=== PATIENT | male | born 1965 | race Caucasian/White ===

== ENCOUNTER 2023-05-20 12:00 | Inpatient (IN) | payer MEDICAID ==
[~2023-05-20] VITALS: Ht 170.2 cm; Wt 53.7 kg
[2023-05-20] VITALS (20 sets, daily range): BP systolic 91–126; BP diastolic 42–74; PULSE 110–137; RESP 12–24; O2SAT 92–99
[2023-05-20] MEDS ORDERED: normal saline 1000ml 1,000 ML IV ONE (12:10)
[2023-05-20] MEDS ORDERED: ondansetron/PF 4mg/2ml inj IV ONE (12:10)
[2023-05-20] MEDS ORDERED: HYDROmorphone 1 mg/ml syringe IV ONE ×2 (12:10→13:00)
[2023-05-20 12:30] LABS: BASOPHILS % (AUTO) 0.3 % (0-1); EOSINOPHILS # (AUTO) 0.1 X10'3 (0-0.9); HEMATOCRIT 45.7 % (42.0-52.0); HEMOGLOBIN 15.2 g/dl (14.0-17.9); LYMPHOCYTES % (AUTO) 37.7 % (21-51); MEAN CORPUSCULAR HEMOGLOBIN 33.3 PG (27.0-31.0); MEAN CORPUSCULAR HGB CONC 33.3 g/dL (33.0-36.5); MEAN CORPUSCULAR VOLUME 99.9 FL (78-98); MEAN PLATELET VOLUME 6.6 FL (7.4-10.4); MONOCYTES % (AUTO) 1.7 % (2-12); NEUTROPHILS # (AUTO) 1.5 X10'3 (1.8-7.7); NEUTROPHILS % (AUTO) 58.3 % (42-75); PLATELET COUNT 435 X10'3 (140-440); RED BLOOD COUNT 4.57 X10'6 (4.70-6.10); WHITE BLOOD COUNT 2.6 X10'3 (4.5-11.0)
[2023-05-20 12:56] LABS: ALANINE AMINOTRANSFERASE 7 U/L (12-78); ALBUMIN 3.1 G/DL (3.4-5.0); ALBUMIN/GLOBULIN RATIO 1.1 (1.1-1.5); ALKALINE PHOSPHATASE 70 IU/L (46-116); ANION GAP 19 (8-16); ASPARTATE AMINO TRANSFERASE 18 U/L (10-37); BILIRUBIN,TOTAL 2.5 MG/DL (0.1-1.0); BLOOD UREA NITROGEN 18 MG/DL (7-18); BUN/CREATININE RATIO 17.1 (10.0-20.0); CALCIUM 7.1 MG/DL (8.5-10.1); CHLORIDE 98 MMOL/L (99-107); CREATININE 1.05 MG/DL (0.60-1.10); GLUCOSE 167 MG/DL (70-104); LIPASE 14 U/L (16-77); POTASSIUM 3.2 MMOL/L (3.5-5.1); SODIUM 133 MMOL/L (135-145); TOTAL CARBON DIOXIDE 16.5 MMOL/L (24-32); TOTAL PROTEIN 5.9 G/DL (6.4-8.2); eCRCL 51 ML/MIN; eGFR 73 ML/MIN
[2023-05-20] MEDS ORDERED: piperacillin/tazo 4.5gm/100ml 100 ML IV STA (12:56)
[2023-05-20 12:59] LABS: TOTAL CELLS COUNTED 100
[2023-05-20 13:00] LABS: BURR CELLS FEW; PLATELET ESTIMATE NORMAL; TOXIC GRANULATION 1+; TOXIC VACUOLATION FEW
[2023-05-20] MEDS ORDERED: ringers solution, lacted 1,000 ML IV ONE ×4 (13:00→17:50)
[2023-05-20] MEDS ORDERED: vancomycin/NS 1 GM ADD-VANTAGE 250 ML X 1 DOSE IV ONE (13:10)
[2023-05-20] MEDS ORDERED: meperidine/PF 25mg/ml syringe IV PRN ×3 (13:45)
[2023-05-20] MEDS ORDERED: ringers solution, lacted 1,000 ML IV SCH (13:45)
[2023-05-20] MEDS ORDERED: morphine 2 MG/ML inj. syringe IV PRN (13:45)
[2023-05-20] MEDS ORDERED: morphine 4 MG/ML inj SYRINge IV PRN (13:45)
[2023-05-20] MEDS ORDERED: proCHLORperazine 10 MG/2 ml inj IV PRN (13:45)
[2023-05-20] MEDS ORDERED: ondansetron/PF 4mg/2ml inj IV PRN ×2 (13:45→16:40)
[2023-05-20] MEDS ORDERED: TOBRAMYCIN IV STA ×3 (14:14→14:33)
[2023-05-20] MEDS ORDERED: NORMAL SALINE IV STA ×3 (14:14→14:33)
[2023-05-20] MEDS ORDERED: LIDOcaine 1% (10mg/ml)w/preservative inj. 20ml MDV ONE (14:28)
[2023-05-20] MEDS ORDERED: midazolam 1 mg/ML 2ml injection ONE (14:31)
[2023-05-20] MEDS ORDERED: fentaNYL /PF 50mcg/ml 5ml ampule ONE (14:31)
[2023-05-20] MEDS ORDERED: etomidate 2mg/ml inj. ONE (14:32)
[2023-05-20] MEDS ORDERED: rocuronium 10mg/ml inj IV ONE ×2 (14:33→14:35)
[2023-05-20] MEDS ORDERED: desflurane 240ml liquid inh. IH ONE (14:35)
[2023-05-20] MEDS ORDERED: neostigmine methylsulfate 1 MG/ML 10ml vial ONE (14:35)
[2023-05-20] MEDS ORDERED: BUPIVAcaine 2.5mg/ml inj 50ml vial (contains preservative) ONE (14:54)
[2023-05-20 15:34] LABS: ABG BASE EXCESS -9.7 mmol/L (-2.0-2.0); ABG HCO3 17.9 mmol/L (22.0-26.0); ABG PCO2 (T) 43.5 mmHg (35.0-48.0); ABG PH (T) 7.227 (7.340-7.440); ABG PO2 (T) 115.5 mmHg (75.0-100.0); FCOHb 2.1 % (0.0-3.9); FHHb 2.9 % (0.0-5.0); FMetHb 0.3 % (0.0-1.5); FO2Hb 94.7 % (94-97); TOTAL HEMOGLOBIN 14.6 G/dl (14.0-17.9)
[2023-05-20] MEDS ORDERED: albumin (Human) 5% 250ml 750 ML IV ONE (16:14)
[2023-05-20] MEDS ORDERED: albuterol 2.5 MG/3 ML nebule NEB PRN (16:40)
--- NOTE | 2023-05-20 16:58 | NUR ---
Received from OR via HOSPITAL BED, accompanied by Anesthesiologist and report given by KAE Anesthesiologist. PATIENT SEDATED AND INTUBATED, NO S/S OF PAIN, V/S WNL, 20G TO RIGHT AND LEFT FOREARM, ART LINE LUE, CENTRAL LINE RIGHT IJ. RIGHT NARES NG TUBE CONNECTED TO LOWER INTERMITTENT WALL SUCTION. ZHANG CATH DRAINING CLEAR DARK YELLOW URINE. ABDOMEN DRESSING C/D/I WITH SEROSANGUINEOUS FLUID DRESSING. Addendum: 05/20/23 at 1821 by Ervin Rendon RN Amended: Links added.
[2023-05-20] MEDS ORDERED: fentaNYL/PF 50MCG/1 ML 2ML syringe IV PRN (17:05)
[2023-05-20] MEDS ORDERED: FENTANYL-0.9 % NACL/PF 100 ML IV PRN (17:05)
[2023-05-20] MEDS ORDERED: midazolam 1 mg/ML 2ml injection IV ONE (17:05)
[2023-05-20 17:28] LABS: ABG BASE EXCESS -11.3 mmol/L (-2.0-2.0); ABG HCO3 15.7 mmol/L (22.0-26.0); ABG OXYGEN SATURATION 97.2 % (94-97); ABG PCO2 (T) 35.4 mmHg (35.0-48.0); ABG PH (T) 7.252 (7.340-7.440); ABG PO2 (T) 109.1 mmHg (75.0-100.0); FCOHb 1.4 % (0.0-3.9); FHHb 2.8 % (0.0-5.0); FMetHb 0.3 % (0.0-1.5); FO2Hb 95.5 % (94-97); MODE VENT - SIMV; PATIENT TEMPERATURE 34.5; PEEP 5 cm H2O; RESPIRATORY RATE 12 b/min; TIDAL VOLUME 500 mL; TOTAL HEMOGLOBIN 12.1 G/dl (14.0-17.9)
[2023-05-20] MEDS ORDERED: NORepinephrine 8mg/ 250ml NS 250 ML IV PRN (17:30)
[2023-05-20] MEDS: NORepinephrine 8mg/ 250ml NS 250 ML IV PRN (17:39)
[2023-05-20] MEDS: FENTANYL-0.9 % NACL/PF 100 ML IV PRN (17:40)
[2023-05-20] MEDS ORDERED: vasopressin inj. 40 UNIT in dextrose 5%-water 50ml 38 ML IV SCH (17:40)
[2023-05-20] MEDS ORDERED: vasopressin inj. 40 UNIT in normal saline 50ml IV soln 38 ML IV SCH (17:44)
[2023-05-20 17:48] LABS: LYMPHOCYTES # (AUTO) 0.2 X10'3 (1.1-4.8); MONOCYTES # (AUTO) 0.1 X10'3 (0-0.9)
[2023-05-20] MEDS: midazolam 100mg in NS 100ml 100 ML IV PRN (17:49)
[2023-05-20 17:50] LABS: BASOPHILS % (AUTO) 0.6 % (0-1); EOSINOPHILS % (AUTO) 0.8 % (0-6); HEMATOCRIT 34.6 % (42.0-52.0); HEMOGLOBIN 11.7 g/dl (14.0-17.9); LYMPHOCYTES % (AUTO) 33.6 % (21-51); MEAN CORPUSCULAR VOLUME 100.1 FL (78-98); MEAN PLATELET VOLUME 6.2 FL (7.4-10.4); MONOCYTES % (AUTO) 11.3 % (2-12); NEUTROPHILS # (AUTO) 0.3 X10'3 (1.8-7.7); NEUTROPHILS % (AUTO) 53.7 % (42-75); PLATELET COUNT 271 X10'3 (140-440); RED BLOOD COUNT 3.45 X10'6 (4.70-6.10)
[2023-05-20 18:04] LABS: CLARITY,URINE CLOUDY (Clear); COLOR,URINE BROWN (Yellow)
[2023-05-20 18:07] LABS: ALBUMIN 2.2 G/DL (3.4-5.0); ANION GAP 11 (8-16); BLOOD UREA NITROGEN 18 MG/DL (7-18); CHLORIDE 108 MMOL/L (99-107); CREATININE 0.75 MG/DL (0.60-1.10); GLUCOSE 103 MG/DL (70-104); SODIUM 137 MMOL/L (135-145); eCRCL 71 ML/MIN; eGFR > 90 ML/MIN
[2023-05-20 18:15] LABS: POTASSIUM 2.8 MMOL/L (3.5-5.1)
[2023-05-20 18:16] LABS: CALCIUM 5.4 MG/DL (8.5-10.1)
[2023-05-20] MEDS: ringers solution, lacted 1,000 ML IV SCH (18:25)
[2023-05-20 18:26] LABS: UA COLLECTION TYPE NON-SPECIFIED
[2023-05-20 18:29] LABS: BACTERIA,URINE 2+ /HPF (Neg); SQUAMOUS EPITHELIAL CELL,UR NONE SEEN /LPF (FEW)
[2023-05-20] MEDS: sodium bicarbonate (8.4%) inj. 50 MEQ in dextrose 5%-water 1,000 ML IV SCH (18:29)
[2023-05-20 18:41] LABS: WHITE BLOOD COUNT 0.6 X10'3 (4.5-11.0)
[2023-05-20 18:57] LABS: BURR CELLS 1+; PLATELET ESTIMATE NORMAL; TOTAL CELLS COUNTED 100
[2023-05-20 18:58] LABS: TOXIC GRANULATION 1+
[2023-05-20 19:00] LABS: ELLIPTOCYTES FEW; TOXIC VACUOLATION 1+
[2023-05-20] MEDS: ipratropium/albuterol 3ml nebule NEB SCH ×2 (19:09→23:18)
[2023-05-20] MEDS ORDERED: albumin (Human) 5% 250ml 250 ML IV ONE ×2 (19:20→20:06)
[2023-05-20 19:36] LABS: ABG BASE EXCESS -7.9 mmol/L (-2.0-2.0); ABG HCO3 16.8 mmol/L (22.0-26.0); ABG OXYGEN SATURATION 94.3 % (94-97); ABG PCO2 (T) 30.3 mmHg (35.0-48.0); ABG PH (T) 7.355 (7.340-7.440); FCOHb 1.2 % (0.0-3.9); FHHb 5.6 % (0.0-5.0); FMetHb 0.2 % (0.0-1.5); MODE SIMV; PATIENT TEMPERATURE 35.6; PEEP 5 cm H2O; RESPIRATORY RATE 16 b/min; TIDAL VOLUME 500 mL; TOTAL HEMOGLOBIN 13.2 G/dl (14.0-17.9)
[2023-05-20] MEDS ORDERED: Potassium Cl inj 40 MEQ in normal saline 250ml IV soln 250 ML IV ONE (19:45)
[2023-05-20] MEDS ORDERED: albumin (Human) 5% 250ml 500 ML IV ONE (20:06)
[2023-05-20 20:18] LABS: BASOPHILS % (AUTO) 0.7 % (0-1); EOSINOPHILS % (AUTO) 1.2 % (0-6); HEMATOCRIT 39.8 % (42.0-52.0); HEMOGLOBIN 13.5 g/dl (14.0-17.9); LYMPHOCYTES # (AUTO) 0.3 X10'3 (1.1-4.8); LYMPHOCYTES % (AUTO) 44.2 % (21-51); MEAN CORPUSCULAR HEMOGLOBIN 33.9 PG (27.0-31.0); MEAN CORPUSCULAR HGB CONC 33.9 g/dL (33.0-36.5); MEAN PLATELET VOLUME 6.9 FL (7.4-10.4); MONOCYTES # (AUTO) 0.1 X10'3 (0-0.9); MONOCYTES % (AUTO) 13.8 % (2-12); NEUTROPHILS # (AUTO) 0.3 X10'3 (1.8-7.7); NEUTROPHILS % (AUTO) 40.1 % (42-75); PLATELET COUNT 329 X10'3 (140-440); RED BLOOD COUNT 3.98 X10'6 (4.70-6.10); RED CELL DISTRIBUTION WIDTH 13.9 % (11.5-14.5)
[2023-05-20 20:19] LABS: ALANINE AMINOTRANSFERASE 13 U/L (12-78); ALBUMIN 2.1 G/DL (3.4-5.0); ALBUMIN/GLOBULIN RATIO 1.8 (1.1-1.5); ALKALINE PHOSPHATASE 37 IU/L (46-116); ANION GAP 11 (8-16); ASPARTATE AMINO TRANSFERASE 33 U/L (10-37); BILIRUBIN,TOTAL 1.9 MG/DL (0.1-1.0); BLOOD UREA NITROGEN 18 MG/DL (7-18); BUN/CREATININE RATIO 21.7 (10.0-20.0); CHLORIDE 108 MMOL/L (99-107); CREATININE 0.83 MG/DL (0.60-1.10); GLUCOSE 133 MG/DL (70-104); MAGNESIUM 1.2 MG/DL (1.5-2.4); PHOSPHORUS 2.9 MG/DL (2.3-4.5); SODIUM 137 MMOL/L (135-145); TOTAL CARBON DIOXIDE 18.2 MMOL/L (24-32); TOTAL PROTEIN 3.3 G/DL (6.4-8.2); eCRCL 64 ML/MIN; eGFR > 90 ML/MIN
[2023-05-20 20:24] LABS: CALCIUM 5.7 MG/DL (8.5-10.1)
[2023-05-20 20:42] LABS: WHITE BLOOD COUNT 0.7 X10'3 (4.5-11.0)
[2023-05-20] MEDS ORDERED: magnesium 4gm in 100ml NS 100 ML IV ONE (22:05)
[2023-05-20] MEDS ORDERED: CALCIUM GLUC 1gm/50ml NACL,iso 50 ML IV ONE (22:05)
[2023-05-21] VITALS (47 sets, daily range): BP systolic 84–124; BP diastolic 19–70; PULSE 99–138; RESP 14–24; O2SAT 89–100
[2023-05-21] MEDS: FENTANYL-0.9 % NACL/PF 100 ML IV PRN ×2 (00:15→17:28)
[2023-05-21] MEDS: piperacillin/tazo 4.5gm/100ml 100 ML IV SCH ×4 (00:42→16:33)
[2023-05-21] MEDS: ringers solution, lacted 1,000 ML IV SCH ×4 (00:42→16:36)
[2023-05-21 01:19] LABS: HEMOGLOBIN 11.4 g/dl (14.0-17.9); LYMPHOCYTES # (AUTO) 0.4 X10'3 (1.1-4.8); MONOCYTES # (AUTO) 0.1 X10'3 (0-0.9)
[2023-05-21 01:20] LABS: BASOPHILS % (AUTO) 0.5 % (0-1); HEMATOCRIT 33.6 % (42.0-52.0); LYMPHOCYTES % (AUTO) 41.4 % (21-51); MEAN CORPUSCULAR HEMOGLOBIN 33.8 PG (27.0-31.0); MEAN CORPUSCULAR HGB CONC 33.8 g/dL (33.0-36.5); MEAN PLATELET VOLUME 6.4 FL (7.4-10.4); MONOCYTES % (AUTO) 7.7 % (2-12); NEUTROPHILS # (AUTO) 0.5 X10'3 (1.8-7.7); NEUTROPHILS % (AUTO) 48.4 % (42-75); PLATELET COUNT 271 X10'3 (140-440); RED BLOOD COUNT 3.36 X10'6 (4.70-6.10)
[2023-05-21 01:33] LABS: APTT 69 SECONDS (22-32); INR 1.5 INR; PROTHROMBIN TIME 15.6 SECONDS (9.0-12.0)
[2023-05-21 01:37] LABS: ALANINE AMINOTRANSFERASE 20 U/L (12-78); ALBUMIN 2.7 G/DL (3.4-5.0); ALKALINE PHOSPHATASE 24 IU/L (46-116); ANION GAP 6 (8-16); ASPARTATE AMINO TRANSFERASE 23 U/L (10-37); BILIRUBIN,TOTAL 1.8 MG/DL (0.1-1.0); BLOOD UREA NITROGEN 17 MG/DL (7-18); BUN/CREATININE RATIO 17.3 (10.0-20.0); CALCIUM 6.2 MG/DL (8.5-10.1); CHLORIDE 107 MMOL/L (99-107); CREATININE 0.98 MG/DL (0.60-1.10); GLUCOSE 154 MG/DL (70-104); MAGNESIUM 1.3 MG/DL (1.5-2.4); PHOSPHORUS 2.7 MG/DL (2.3-4.5); POTASSIUM 3.3 MMOL/L (3.5-5.1); SODIUM 132 MMOL/L (135-145); TOTAL CARBON DIOXIDE 19.2 MMOL/L (24-32); TOTAL PROTEIN 3.6 G/DL (6.4-8.2); eCRCL 54 ML/MIN; eGFR 79 ML/MIN
[2023-05-21] MEDS: NORepinephrine 8mg/ 250ml NS 250 ML IV PRN ×2 (02:09→06:11)
[2023-05-21] MEDS ORDERED: normal saline 1000ml 1,000 ML IV ONE (02:15)
[2023-05-21] MEDS ORDERED: hydrocortisone sod succ/PF 250mg/2ml inj. IV SCH (02:15)
[2023-05-21] MEDS ORDERED: vasopressin inj. 40 UNIT in dextrose 5%-water 50ml 38 ML IV SCH (02:20)
[2023-05-21] MEDS ORDERED: vasopressin inj. 40 UNIT in normal saline 50ml IV soln 38 ML IV SCH (02:26)
[2023-05-21] MEDS ORDERED: hydrocortisone sod succ/PF 100mg/2ml inj. IV SCH (02:42)
[2023-05-21 02:47] LABS: PLATELET ESTIMATE NORMAL; TOTAL CELLS COUNTED 100
[2023-05-21 02:48] LABS: BURR CELLS 1+; TOXIC GRANULATION 1+; TOXIC VACUOLATION 1+
[2023-05-21] MEDS: potassium Cl 20mEq/100mL bag 100 ML IV SCH ×2 (02:50→03:36)
[2023-05-21] MEDS: ipratropium/albuterol 3ml nebule NEB SCH ×6 (03:26→23:16)
[2023-05-21 03:45] LABS: ABG BASE EXCESS -8.6 mmol/L (-2.0-2.0); ABG HCO3 16.9 mmol/L (22.0-26.0); ABG OXYGEN SATURATION 98.2 % (94-97); ABG PCO2 (T) 34.8 mmHg (35.0-48.0); ABG PH (T) 7.304 (7.340-7.440); ABG PO2 (T) 162.4 mmHg (75.0-100.0); FCOHb 0.6 % (0.0-3.9); FHHb 1.8 % (0.0-5.0); FMetHb 0.2 % (0.0-1.5); FO2Hb 97.4 % (94-97); MODE SIMV; PATIENT TEMPERATURE 36.8; PEEP 5 cm H2O; RESPIRATORY RATE 14 b/min; TIDAL VOLUME 500 mL; TOTAL HEMOGLOBIN 11.2 G/dl (14.0-17.9)
[2023-05-21] MEDS ORDERED: albumin (Human) 5% 250ml 250 ML IV ONE ×7 (06:30→16:45)
--- NOTE | 2023-05-21 06:30 | NUR ---
Received report from GLENNY Wilburn.
[2023-05-21 08:46] LABS: BASOPHILS % (AUTO) 0.2 % (0-1); EOSINOPHILS % (AUTO) 0.1 % (0-6); HEMATOCRIT 32.3 % (42.0-52.0); HEMOGLOBIN 10.7 g/dl (14.0-17.9); LYMPHOCYTES # (AUTO) 0.3 X10'3 (1.1-4.8); LYMPHOCYTES % (AUTO) 13.2 % (21-51); MEAN CORPUSCULAR HEMOGLOBIN 33.2 PG (27.0-31.0); MEAN CORPUSCULAR HGB CONC 33.1 g/dL (33.0-36.5); MEAN CORPUSCULAR VOLUME 100.5 FL (78-98); MEAN PLATELET VOLUME 6.8 FL (7.4-10.4); MONOCYTES # (AUTO) 0.1 X10'3 (0-0.9); MONOCYTES % (AUTO) 5.1 % (2-12); NEUTROPHILS % (AUTO) 81.4 % (42-75); PLATELET COUNT 224 X10'3 (140-440); RED BLOOD COUNT 3.21 X10'6 (4.70-6.10); WHITE BLOOD COUNT 2.4 X10'3 (4.5-11.0)
[2023-05-21] MEDS: epiNEPHrine inj 5 MG in normal saline 250ml IV soln 245 ML IV SCH ×2 (08:56→13:33)
[2023-05-21 09:01] LABS: ALANINE AMINOTRANSFERASE 14 U/L (12-78); ALBUMIN 2.8 G/DL (3.4-5.0); ALBUMIN/GLOBULIN RATIO 2.3 (1.1-1.5); ALKALINE PHOSPHATASE 20 IU/L (46-116); ANION GAP 11 (8-16); ASPARTATE AMINO TRANSFERASE 21 U/L (10-37); BILIRUBIN,TOTAL 1.4 MG/DL (0.1-1.0); BLOOD UREA NITROGEN 14 MG/DL (7-18); BUN/CREATININE RATIO 14.9 (10.0-20.0); CALCIUM 6.5 MG/DL (8.5-10.1); CHLORIDE 108 MMOL/L (99-107); CREATININE 0.94 MG/DL (0.60-1.10); GLUCOSE 132 MG/DL (70-104); MAGNESIUM 2.3 MG/DL (1.5-2.4); PHOSPHORUS 3.1 MG/DL (2.3-4.5); POTASSIUM 3.9 MMOL/L (3.5-5.1); SODIUM 135 MMOL/L (135-145); TOTAL CARBON DIOXIDE 16.4 MMOL/L (24-32); eCRCL 57 ML/MIN; eGFR 83 ML/MIN
[2023-05-21] MEDS: milrinone (Primacor) 20mg/D5W 100 ML IV SCH ×2 (09:25→23:00)
[2023-05-21 11:12] LABS: OXYGEN SATURATION (MIXED VEN) 79.1 % (60-80); PO2 MIXED VENOUS (TEMP COR) 46.4 mmHg (35-46)
[2023-05-21 11:13] LABS: ABG BASE EXCESS -8.5 mmol/L (-2.0-2.0); ABG OXYGEN SATURATION 98.1 % (94-97); ABG PCO2 (T) 35.3 mmHg (35.0-48.0); ABG PH (T) 7.301 (7.340-7.440); ABG PO2 (T) 147.4 mmHg (75.0-100.0); FCOHb 0.4 % (0.0-3.9); FHHb 1.9 % (0.0-5.0); FMetHb 0.2 % (0.0-1.5); FO2Hb 97.5 % (94-97); MODE VENT - SIMV/VC; PATIENT TEMPERATURE 37.2; PEEP 5 cm H2O; RESPIRATORY RATE 14 b/min; TIDAL VOLUME 500 mL; TOTAL HEMOGLOBIN 10.6 G/dl (14.0-17.9)
[2023-05-21 11:16] LABS: OXYGEN SATURATION (MIXED VEN) 83.9 % (60-80); PO2 MIXED VENOUS (TEMP COR) 50.5 mmHg (35-46)
[2023-05-21] MEDS: midazolam 100mg in NS 100ml 100 ML IV PRN (11:48)
--- NOTE | 2023-05-21 11:56 | NUR ---
Initial: Pt admit for perforated viscus and sepsis. Currently intubated POD #1 s/p colon resection. Per MD at [facility] pt likely to require nutrition support with TPN though not to begin today and will need a PICC line to be placed. TPN recommendations below for once pt to receive nutrition support, though recommend enteral nutrition once able to utilize gut. Noted pt with a low BMI of 16.0 using wt of 46.25 kg with no wt hx in EMR. Unable to obtain information from pt at this time d/t intubation. Per CM at [facility] patient's SO getting surgery at [facility]. Per ED report pt appears well developed well nourished. Will continue to follow closely and monitor s/s of malnutrition and make recommendations as appropriate. Recommendations: 1) IF TPN, continuous 2:1 Clinimix-E 5/20 with 55 mL/hr goal rate with additional 100 mL 20% ILE to run at 8.33 mL/hr for 12 hours/day to provide 1320 mL total volume/day, 66 a AA, 264 g dext (3.96 mg/kg/min GIR) and 1362 kcal. Unable to meet 100% estimated nutrient needs without exceeding GIR d/t high dextrose formula 2) Monitor scaled weights and ability to adjust TPN recs; 2:1 Clinimix-E 5/20 at 83.33 mL/hr with additional 100 mL 20% ILE to run at 8.33 mL/hr for 12 hours/day will meet 100% estimated nutrient needs though is 6.01 mg/kg/min GIR with current documented wt 3) IF TPN, prealbumin and TG q Friday/ 4) Daily scaled weights 5) Bowel care per physician 6) Monitor s/s of malnutrition Addendum: 05/21/23 at [address] Amended: Links added.
[2023-05-21] MEDS: sodium bicarbonate (8.4%) inj. 50 MEQ in dextrose 5%-water 1,000 ML IV SCH (14:17)
[2023-05-21 15:01] LABS: PO2 MIXED VENOUS (TEMP COR) 46.1 mmHg (35-46)
[2023-05-21 15:12] LABS: ABG BASE EXCESS -6.9 mmol/L (-2.0-2.0); ABG HCO3 18.5 mmol/L (22.0-26.0); ABG OXYGEN SATURATION 96.8 % (94-97); ABG PH (T) 7.317 (7.340-7.440); ABG PO2 (T) 103.4 mmHg (75.0-100.0); FCOHb 0.8 % (0.0-3.9); FHHb 3.2 % (0.0-5.0); FMetHb 0.2 % (0.0-1.5); FO2Hb 95.8 % (94-97); MODE VENT - SIMV; PATIENT TEMPERATURE 37.4; PEEP 5 cm H2O; RESPIRATORY RATE 14 b/min; TIDAL VOLUME 500 mL
[2023-05-21] MEDS: epiNEPHrine inj 10 MG in normal saline 250ml IV soln 240 ML IV SCH (16:32)
[2023-05-21 17:52] LABS: OXYGEN SATURATION (MIXED VEN) 85.4 % (60-80); PO2 MIXED VENOUS (TEMP COR) 50.8 mmHg (35-46)
--- NOTE | 2023-05-21 18:11 | NUR ---
Report given to GLENNY Wilburn
[2023-05-21] MEDS: enoxaparin 40mg/0.4ml syringe SUBCUT SCH (20:29)
[2023-05-21] MEDS: mineral oil/petrolatum ophthal oint EACHEYE SCH (20:29)
--- NOTE | 2023-05-21 22:19 | NUR ---
Dr. Dimas rounded on pt, new orders received to give 500 ML of 5% albumin to keep CVP 10-12, wean epi off, start vasopressin at 2.4ml/hr. Start low dose Levophed if pt not maintaining a sbp of 100 on vasopressin.
[2023-05-21] MEDS: albumin (Human) 5% 250ml 250 ML IV PRN (22:36)
[2023-05-21] MEDS: vasopressin inj. 40 UNIT in normal saline 50ml IV soln 38 ML IV SCH (23:18)
[2023-05-22] VITALS (39 sets, daily range): BP systolic 90–139; BP diastolic 50–72; PULSE 101–123; RESP 8–17; O2SAT 94–100
[2023-05-22] MEDS: ringers solution, lacted 1,000 ML IV SCH ×2 (00:13→06:20)
[2023-05-22] MEDS: piperacillin/tazo 4.5gm/100ml 100 ML IV SCH ×3 (00:18→17:34)
[2023-05-22] MEDS ORDERED: dextrose 50%-water 50ml dispensing syringe IV PRN (02:15)
[2023-05-22] MEDS: mineral oil/petrolatum ophthal oint EACHEYE SCH ×4 (02:24→20:52)
[2023-05-22] MEDS: dextrose 50%-water 50ml dispensing syringe IV PRN ×2 (02:25→10:20)
[2023-05-22] MEDS: FENTANYL-0.9 % NACL/PF 100 ML IV PRN ×2 (02:26→12:02)
[2023-05-22 02:51] LABS: EOSINOPHILS % (AUTO) 0.1 % (0-6); HEMOGLOBIN 8.9 g/dl (14.0-17.9); MONOCYTES # (AUTO) 0.2 X10'3 (0-0.9)
[2023-05-22 02:52] LABS: BASOPHILS % (AUTO) 0 % (0-1); HEMATOCRIT 26.2 % (42.0-52.0); LYMPHOCYTES # (AUTO) 0.5 X10'3 (1.1-4.8); LYMPHOCYTES % (AUTO) 6.9 % (21-51); MEAN CORPUSCULAR HEMOGLOBIN 33.9 PG (27.0-31.0); MEAN CORPUSCULAR HGB CONC 33.9 g/dL (33.0-36.5); MEAN CORPUSCULAR VOLUME 99.8 FL (78-98); MEAN PLATELET VOLUME 7.1 FL (7.4-10.4); MONOCYTES % (AUTO) 2.9 % (2-12); NEUTROPHILS % (AUTO) 90.1 % (42-75); PLATELET COUNT 130 X10'3 (140-440); RED BLOOD COUNT 2.62 X10'6 (4.70-6.10); RED CELL DISTRIBUTION WIDTH 14.4 % (11.5-14.5); WHITE BLOOD COUNT 6.6 X10'3 (4.5-11.0)
[2023-05-22 03:05] LABS: ALANINE AMINOTRANSFERASE 16 U/L (12-78); ALBUMIN 3.3 G/DL (3.4-5.0); ALKALINE PHOSPHATASE 29 IU/L (46-116); ANION GAP 13 (8-16); ASPARTATE AMINO TRANSFERASE 27 U/L (10-37); BILIRUBIN,TOTAL 1.7 MG/DL (0.1-1.0); BLOOD UREA NITROGEN 10 MG/DL (7-18); BUN/CREATININE RATIO 10.2 (10.0-20.0); CALCIUM 7.4 MG/DL (8.5-10.1); CHLORIDE 112 MMOL/L (99-107); CREATININE 0.98 MG/DL (0.60-1.10); GLUCOSE 51 MG/DL (70-104); MAGNESIUM 2.1 MG/DL (1.5-2.4); PHOSPHORUS 3.1 MG/DL (2.3-4.5); SODIUM 142 MMOL/L (135-145); TOTAL CARBON DIOXIDE 16.7 MMOL/L (24-32); TOTAL PROTEIN 4.4 G/DL (6.4-8.2); eCRCL 54 ML/MIN; eGFR 79 ML/MIN
[2023-05-22 03:13] LABS: POTASSIUM 2.7 MMOL/L (3.5-5.1)
[2023-05-22] MEDS: albumin (Human) 5% 250ml 250 ML IV PRN ×4 (03:23→21:13)
[2023-05-22] MEDS: ipratropium/albuterol 3ml nebule NEB SCH ×2 (03:33→07:16)
[2023-05-22] MEDS: potassium Cl 20mEq/100mL bag 100 ML IV PRN ×2 (03:42→17:48)
[2023-05-22 03:44] LABS: ABG BASE EXCESS -6.9 mmol/L (-2.0-2.0); ABG HCO3 18.3 mmol/L (22.0-26.0); ABG OXYGEN SATURATION 97.7 % (94-97); ABG PCO2 (T) 35.9 mmHg (35.0-48.0); ABG PH (T) 7.326 (7.340-7.440); ABG PO2 (T) 113.9 mmHg (75.0-100.0); FCOHb 1.2 % (0.0-3.9); FHHb 2.3 % (0.0-5.0); FMetHb 0.2 % (0.0-1.5); FO2Hb 96.3 % (94-97); MODE VENT - SIMV; PATIENT TEMPERATURE 37.4; PEEP 5 cm H2O; RESPIRATORY RATE 14 b/min; TIDAL VOLUME 500 mL; TOTAL HEMOGLOBIN 8.8 G/dl (14.0-17.9)
[2023-05-22 03:54] LABS: TOTAL CELLS COUNTED 100
[2023-05-22 04:00] LABS: PLATELET ESTIMATE DECREASED
[2023-05-22 04:05] LABS: BURR CELLS 2+; SCHISTOCYTES FEW; TARGET CELLS FEW; TOXIC GRANULATION 1+; TOXIC VACUOLATION 1+
[2023-05-22] MEDS: pantoprazole 40MG/NS 100ML BAG 100 ML IV SCH (09:01)
[2023-05-22] MEDS: midazolam 100mg in NS 100ml 100 ML IV PRN (09:06)
[2023-05-22] MEDS: vasopressin inj. 40 UNIT in normal saline 50ml IV soln 38 ML IV SCH (11:23)
[2023-05-22] MEDS: NORepinephrine 8mg/ 250ml NS 250 ML IV PRN (11:30)
[2023-05-22] MEDS: sodium bicarbonate (8.4%) inj. 50 MEQ in dextrose 5%-water 1,000 ML IV SCH (11:30)
[2023-05-22] MEDS ORDERED: DOBUTamine-DoBUTrex 500mg/D5W 250 ML IV PRN (11:35)
[2023-05-22] MEDS ORDERED: DOBUTamine-DoBUTrex 500mg/D5W 250 ML IV ONE (11:38)
[2023-05-22] MEDS: dextrose 5%-lactated ringers 1,000 ML IV SCH ×2 (12:08→17:57)
[2023-05-22] MEDS: milrinone (Primacor) 20mg/D5W 100 ML IV SCH (13:25)
[2023-05-22 14:01] LABS: OXYGEN SATURATION (MIXED VEN) 79.2 % (60-80); PO2 MIXED VENOUS (TEMP COR) 42.7 mmHg (35-46)
[2023-05-22] MEDS ORDERED: NO HOME MEDS (17:36)
--- NOTE | 2023-05-22 18:30 | NUR ---
Patient in room ICU 2043. I have received report from Fawn MURRIETA and had the opportunity to ask questions and assume patient care.
[2023-05-22] MEDS ORDERED: magnesium 2GM in 50ml NS 50 ML IV PRN (19:50)
[2023-05-22] MEDS ORDERED: magnesium Cl slow-release 64mg tablet PO PRN (19:50)
[2023-05-22] MEDS ORDERED: magnesium 4gm in 100ml NS 100 ML IV PRN (19:50)
[2023-05-22] MEDS ORDERED: potassium Cl 20 mEq SR tablet PO PRN (19:50)
[2023-05-22] MEDS: potassium Cl 40MEQ/270ML bag 270 ML IV PRN (20:16)
[2023-05-22] MEDS: enoxaparin 40mg/0.4ml syringe SUBCUT SCH (20:53)
[2023-05-23] VITALS (34 sets, daily range): BP systolic 91–109; BP diastolic 52–72; PULSE 101–110; RESP 14–17; O2SAT 97–100
[2023-05-23] MEDS: piperacillin/tazo 4.5gm/100ml 100 ML IV SCH ×3 (00:15→17:09)
[2023-05-23] MEDS: mineral oil/petrolatum ophthal oint EACHEYE SCH ×4 (02:36→20:59)
[2023-05-23] MEDS: dextrose 5%-lactated ringers 1,000 ML IV SCH ×4 (02:36→17:09)
[2023-05-23] MEDS: epiNEPHrine inj 10 MG in normal saline 250ml IV soln 240 ML IV SCH (03:02)
[2023-05-23 03:06] LABS: ABG BASE EXCESS -6.7 mmol/L (-2.0-2.0); ABG HCO3 17.9 mmol/L (22.0-26.0); ABG PCO2 (T) 32.4 mmHg (35.0-48.0); ABG PH (T) 7.362 (7.340-7.440); FCOHb 1.5 % (0.0-3.9); FHHb 3.9 % (0.0-5.0); FMetHb 0.2 % (0.0-1.5); FO2Hb 94.4 % (94-97); PATIENT TEMPERATURE 37.2; PEEP 5 cm H2O; RESPIRATORY RATE 14 b/min; TIDAL VOLUME 500 mL; TOTAL HEMOGLOBIN 8.4 G/dl (14.0-17.9)
[2023-05-23 03:17] LABS: BASOPHILS % (AUTO) 0 % (0-1); EOSINOPHILS % (AUTO) 0.2 % (0-6); HEMATOCRIT 24.4 % (42.0-52.0); HEMOGLOBIN 8.3 g/dl (14.0-17.9); LYMPHOCYTES # (AUTO) 0.5 X10'3 (1.1-4.8); LYMPHOCYTES % (AUTO) 4.6 % (21-51); MEAN CORPUSCULAR HEMOGLOBIN 33.8 PG (27.0-31.0); MEAN CORPUSCULAR VOLUME 99.2 FL (78-98); MEAN PLATELET VOLUME 7.9 FL (7.4-10.4); MONOCYTES # (AUTO) 0.2 X10'3 (0-0.9); MONOCYTES % (AUTO) 1.9 % (2-12); NEUTROPHILS # (AUTO) 10.2 X10'3 (1.8-7.7); NEUTROPHILS % (AUTO) 93.3 % (42-75); PLATELET COUNT 69 X10'3 (140-440); RED BLOOD COUNT 2.46 X10'6 (4.70-6.10); RED CELL DISTRIBUTION WIDTH 14.6 % (11.5-14.5); WHITE BLOOD COUNT 10.9 X10'3 (4.5-11.0)
[2023-05-23 03:27] LABS: ALANINE AMINOTRANSFERASE 24 U/L (12-78); ALKALINE PHOSPHATASE 52 IU/L (46-116); ANION GAP 10 (8-16); ASPARTATE AMINO TRANSFERASE 39 U/L (10-37); BILIRUBIN,TOTAL 2.4 MG/DL (0.1-1.0); BLOOD UREA NITROGEN 9 MG/DL (7-18); BUN/CREATININE RATIO 9.9 (10.0-20.0); CALCIUM 8.1 MG/DL (8.5-10.1); CHLORIDE 112 MMOL/L (99-107); CREATININE 0.91 MG/DL (0.60-1.10); GLUCOSE 151 MG/DL (70-104); MAGNESIUM 1.8 MG/DL (1.5-2.4); PHOSPHORUS 1.8 MG/DL (2.3-4.5); POTASSIUM 3.5 MMOL/L (3.5-5.1); SODIUM 141 MMOL/L (135-145); TOTAL CARBON DIOXIDE 18.9 MMOL/L (24-32); TOTAL PROTEIN 4.5 G/DL (6.4-8.2); eCRCL 69 ML/MIN; eGFR 86 ML/MIN
[2023-05-23] MEDS: milrinone (Primacor) 20mg/D5W 100 ML IV SCH ×2 (03:50→17:48)
[2023-05-23] MEDS: FENTANYL-0.9 % NACL/PF 100 ML IV PRN (04:01)
[2023-05-23 04:58] LABS: PLATELET ESTIMATE DECREASED; TOTAL CELLS COUNTED 100; TOXIC GRANULATION 1+; TOXIC VACUOLATION 1+
[2023-05-23 04:59] LABS: BURR CELLS 1+; SCHISTOCYTES FEW; TARGET CELLS FEW
--- NOTE | 2023-05-23 06:41 | NUR ---
Patient in room ICU 2043. I have received report from Kyara MURRIETA and had the opportunity to ask questions and assume patient care.
--- NOTE | 2023-05-23 06:52 | NUR ---
Problems reprioritized. Patient report given, questions answered & plan of care reviewed with Sharon MURRIETA.
[2023-05-23] MEDS: pantoprazole 40MG/NS 100ML BAG 100 ML IV SCH (07:48)
[2023-05-23] MEDS: sodium bicarbonate (8.4%) inj. 50 MEQ in dextrose 5%-water 1,000 ML IV SCH (07:55)
[2023-05-23] MEDS: K and/or MAG REPLACEMENT MC SCH (08:00)
--- NOTE | 2023-05-23 10:58 | NUR ---
TPN consult: Pt remains intubated. Per MD at [facility] pt to get a PICC line and begin TPN. Pt was started on D5LR 05/22 d/t episodes of hypoglycemia though to discontinue with initiation of TPN per MD at [facility]. TPN recommendations below have been d/w clinical pharmacist. Will to follow closely and make recommendations as appropriate. Recommendations: 1) Continuous 2:1 Clinimix-E 5/20 with 75 mL/hr goal rate with additional 100 mL 20% ILE to run at 8.33 mL/hr for 12 hours/day to provide 1800 mL total volume/day, 90 g AA, 360 g dext (4.00 mg/kg/min GIR) and 1784 kcal 2) Monitor scaled weights and ability to adjust TPN recs; 2:1 Clinimix-E 5/20 at 83.33 mL/hr with additional 100 mL 20% ILE to run at 8.33 mL/hr for 12 hours/day will meet 100% estimated nutrient needs though is 4.45 mg/kg/min GIR with current documented wt 3) Prealbumin and TG q Friday/ 4) Daily scaled weights 5) Bowel care per physician 6) Monitor s/s of malnutrition Addendum: 05/23/23 at [address] Amended: Links added.
--- NOTE | 2023-05-23 11:48 | NUR ---
Spoke to Kyara/PICC RN,states patient is not due for PICC insertion due to blood culture result is less than 72 hours.
[2023-05-23] MEDS: vasopressin inj. 40 UNIT in normal saline 50ml IV soln 38 ML IV SCH ×2 (13:34→13:37)
--- NOTE | 2023-05-23 16:13 | NUR ---
Called Dr. Velez to get an ok to start patient on TPN per team meeting/rounding at 1000 today, states it's Dr. Meza covering.
--- NOTE | 2023-05-23 16:14 | NUR ---
Left a message with Dr. Meza if ok to start pt on TPN per concrete precast moulder recommendation and to ask MD regarding status of pending surgery.Awaiting call back.
--- NOTE | 2023-05-23 16:32 | NUR ---
Spoke with Dr. molina, ordered to Hold off TPN order,"patient doesn't need it", patient is going back to OR for abdominal suregry tomorrow afternoon per MD.
[2023-05-23] MEDS ORDERED: Neutra Phos packet PO PRN (16:45)
[2023-05-23] MEDS ORDERED: sodium phosphate inj. 30 MMOL in dextrose 5%-water 250 ML IV PRN (16:45)
--- NOTE | 2023-05-23 16:46 | NUR ---
Called pharmacy to send Phos replacement.
[2023-05-23] MEDS: sodium phosphate inj. 15 MMOL in dextrose 5%-water 250 ML IV PRN (17:09)
--- NOTE | 2023-05-23 18:20 | NUR ---
Problems reprioritized. Patient report given, questions answered & plan of care reviewed with Kyara MURRIETA.
--- NOTE | 2023-05-23 18:30 | NUR ---
Patient in room ICU 2043. I have received report from Aileen MURRIETA and had the opportunity to ask questions and assume patient care.
[2023-05-23] MEDS: midazolam 100mg in NS 100ml 100 ML IV PRN (22:23)
[2023-05-24] VITALS (38 sets, daily range): BP systolic 95–138; BP diastolic 56–96; PULSE 100–123; RESP 14–24; TEMP 97.2–99.6; O2SAT 96–100
[2023-05-24] MEDS: mineral oil/petrolatum ophthal oint EACHEYE SCH ×4 (01:26→21:22)
[2023-05-24] MEDS: piperacillin/tazo 4.5gm/100ml 100 ML IV SCH ×3 (01:26→16:20)
[2023-05-24] MEDS: dextrose 5%-lactated ringers 1,000 ML IV SCH ×4 (01:49→23:39)
[2023-05-24] MEDS: FENTANYL-0.9 % NACL/PF 100 ML IV PRN (02:40)
[2023-05-24 03:25] LABS: BASOPHILS % (AUTO) 0.1 % (0-1); EOSINOPHILS % (AUTO) 0.3 % (0-6); HEMATOCRIT 24.1 % (42.0-52.0); HEMOGLOBIN 8.1 g/dl (14.0-17.9); LYMPHOCYTES # (AUTO) 0.8 X10'3 (1.1-4.8); LYMPHOCYTES % (AUTO) 8.4 % (21-51); MEAN CORPUSCULAR HEMOGLOBIN 33.4 PG (27.0-31.0); MEAN CORPUSCULAR HGB CONC 33.9 g/dL (33.0-36.5); MEAN CORPUSCULAR VOLUME 98.6 FL (78-98); MEAN PLATELET VOLUME 7.9 FL (7.4-10.4); MONOCYTES # (AUTO) 0.4 X10'3 (0-0.9); MONOCYTES % (AUTO) 3.8 % (2-12); NEUTROPHILS # (AUTO) 8.9 X10'3 (1.8-7.7); NEUTROPHILS % (AUTO) 87.4 % (42-75); RED BLOOD COUNT 2.44 X10'6 (4.70-6.10); RED CELL DISTRIBUTION WIDTH 14.9 % (11.5-14.5); WHITE BLOOD COUNT 10.2 X10'3 (4.5-11.0)
[2023-05-24 03:38] LABS: ABG BASE EXCESS -2.8 mmol/L (-2.0-2.0); ABG HCO3 21.1 mmol/L (22.0-26.0); ABG OXYGEN SATURATION 97.2 % (94-97); ABG PCO2 (T) 33.3 mmHg (35.0-48.0); ABG PH (T) 7.421 (7.340-7.440); ABG PO2 (T) 96.5 mmHg (75.0-100.0); FCOHb 2.1 % (0.0-3.9); FHHb 2.7 % (0.0-5.0); FMetHb 0.2 % (0.0-1.5); PATIENT TEMPERATURE 37.5; PEEP 5 cm H2O; RESPIRATORY RATE 14 b/min; TIDAL VOLUME 500 mL; TOTAL HEMOGLOBIN 8.4 G/dl (14.0-17.9)
[2023-05-24 03:38] LABS: ALANINE AMINOTRANSFERASE 22 U/L (12-78); ALBUMIN 2.2 G/DL (3.4-5.0); ALBUMIN/GLOBULIN RATIO 1.2 (1.1-1.5); ALKALINE PHOSPHATASE 87 IU/L (46-116); ANION GAP 10 (8-16); ASPARTATE AMINO TRANSFERASE 34 U/L (10-37); BLOOD UREA NITROGEN 8 MG/DL (7-18); CALCIUM 7.9 MG/DL (8.5-10.1); CREATININE 0.73 MG/DL (0.60-1.10); GLUCOSE 125 MG/DL (70-104); MAGNESIUM 1.7 MG/DL (1.5-2.4); PHOSPHORUS 1.8 MG/DL (2.3-4.5); POTASSIUM 3.2 MMOL/L (3.5-5.1); SODIUM 143 MMOL/L (135-145); TOTAL PROTEIN 4.1 G/DL (6.4-8.2); eCRCL 99 ML/MIN; eGFR > 90 ML/MIN
[2023-05-24 03:42] LABS: PROTHROMBIN TIME 11.2 SECONDS (9.0-12.0)
[2023-05-24 03:43] LABS: CHLORIDE 112 MMOL/L (99-107)
[2023-05-24 03:58] LABS: PLATELET COUNT 37 X10'3 (140-440)
[2023-05-24] MEDS: potassium Cl 40MEQ/270ML bag 270 ML IV PRN (04:43)
--- NOTE | 2023-05-24 06:30 | NUR ---
Problems reprioritized. Patient report given, questions answered & plan of care reviewed with Hector MURRIETA.
[2023-05-24] MEDS: milrinone (Primacor) 20mg/D5W 100 ML IV SCH ×2 (07:33→21:22)
[2023-05-24] MEDS: pantoprazole 40MG/NS 100ML BAG 100 ML IV SCH (07:37)
[2023-05-24] MEDS: vasopressin inj. 40 UNIT in normal saline 50ml IV soln 38 ML IV SCH (07:42)
[2023-05-24] MEDS: K and/or MAG REPLACEMENT MC SCH (08:00)
--- NOTE | 2023-05-24 08:00 | NUR ---
DC neutropenic protocol per Dr. Steinberg.
--- NOTE | 2023-05-24 11:25 | NUR ---
Received a telephone order from Dr. Patel/Anesthesiologist to give patient 2 PRBC and platelet ready prior to surgery.
--- NOTE | 2023-05-24 11:31 | NUR ---
Reassessment: Pt with a low Alberto of 11. Per WOC note pt with a DTI to right sacrum and abdominal surgical wound. Per verbal d/w bedside RN a PICC line was unable to be placed and surgeon did not want to begin TPN therefore pt remains NPO at this time. Per RN pt to go to OR today. Recommend initiating nutrition support as soon as possible as pt currently day 4 with insufficient nutrition. Fortunately pt continues receiving D5LR at 150 mL/hr providing 612 kcal/day. Will continue to follow closely. Recommendations: 1) IF TPN, continuous 2:1 Clinimix-E 5/20 with 75 mL/hr goal rate with additional 100 mL 20% ILE to run at 8.33 mL/hr for 12 hours/day to provide 1800 mL total volume/day, 90 g AA, 360 g dext (3.86 mg/kg/min GIR) and 1784 kcal 2) IF TPN, monitor scaled weights and ability to adjust TPN recs; 2:1 Clinimix-E 5/20 at 83.33 mL/hr with additional 100 mL 20% ILE to run at 8.33 mL/hr for 12 hours/day will meet 100% estimated nutrient needs though is 4.29 mg/kg/min GIR with current documented wt 3) IF TPN, Prealbumin and TG q Friday/ 4) Initiate EN IF able to utilize gut post-op 5) Discontinue D5 with initiation of nutrition support 6) Daily scaled weights 7) Bowel care per physician 8) Monitor s/s of malnutrition Addendum: 05/24/23 at [address] Amended: Links added.
[2023-05-24] MEDS ORDERED: DOBUTamine/D5W 500mg/250ml premix IV ONE (12:52)
[2023-05-24] MEDS ORDERED: sevoflurane 250ml liquid IH ONE (12:52)
--- NOTE | 2023-05-24 12:53 | NUR ---
Started platelet,paper/transfusion form in the chart.OR staff at bedside to take patient to OR for explor lap surgery.
[2023-05-24] MEDS ORDERED: MIDAZolam 1 MG/ML 5ML VIAL ONE (13:04)
[2023-05-24] MEDS ORDERED: fentaNYL /PF 50mcg/ml 5ml ampule ONE (13:04)
--- NOTE | 2023-05-24 13:17 | NUR ---
patient to OR.
[2023-05-24] MEDS ORDERED: rocuronium 10mg/ml inj IV ONE (13:25)
--- NOTE | 2023-05-24 14:10 | NUR ---
F/u: Per verbal d/w surgeon pt possibly to get a feeding tube placed while in OR and if so likely to begin trickle TF tomorrow 05/25. TF recs below in anticipation of initiation of EN. Recommendations: 1) IF TF, continuous Vital AF with 70 mL/hr goal rate to provide 1680 mL total volume/day, 2016 kcal, 126 g protein, and 1362 mL water. Begin at 30 mL/hr and advance by 20 mL Q8H as tolerated to goal rate 2) IF TF (at goal rate), additional 100 mL water flush Q4H; monitor serum Na 3) IF TPN, continuous 2:1 Clinimix-E 5/20 with 75 mL/hr goal rate with additional 100 mL 20% ILE to run at 8.33 mL/hr for 12 hours/day to provide 1800 mL total volume/day, 90 g AA, 360 g dext (3.86 mg/kg/min GIR) and 1784 kcal 4) IF TPN, monitor scaled weights and ability to adjust TPN recs; 2:1 Clinimix-E 5/20 at 83.33 mL/hr with additional 100 mL 20% ILE to run at 8.33 mL/hr for 12 hours/day will meet 100% estimated nutrient needs though is 4.29 mg/kg/min GIR with current documented wt 5) IF TPN/EN, Prealbumin and TG q Friday/ 6) Discontinue D5 with initiation of nutrition support 7) Daily scaled weights 8) Bowel care per physician 9) Monitor s/s of malnutrition Addendum: 05/24/23 at [address] Amended: Links added.
[2023-05-24] MEDS ORDERED: albumin (Human) 5% 250ml 250 ML IV ONE (15:28)
--- NOTE | 2023-05-24 15:36 | NUR ---
and TRADE SPECIALIST at bedside to bring patient, explor lap, GJ tube placement to left abdomen, ostomy to right abdomen done by Dr. Meza, 200ml blood loss,RN to administer 2nd PRBC, platelet was given in the OR per Dr. Rodriguez.
--- NOTE | 2023-05-24 15:36 | NUR ---
BT #1 completed in the OR but was never ended in transfusion spreadsheet, RN "ended" transfusion after patient back in OR.
[2023-05-24] MEDS ORDERED: naloxone 0.4 mg/ml inj IV PRN (15:45)
--- NOTE | 2023-05-24 15:48 | NUR ---
Patient back in the room from OR.
[2023-05-24] MEDS ORDERED: insulin Lispro (HumaLOG) vial - multi-dose SQ SCH (18:05)
--- NOTE | 2023-05-24 18:30 | NUR ---
Patient in room ICU 2043. I have received report from Aileen MURRIETA and had the opportunity to ask questions and assume patient care.
--- NOTE | 2023-05-24 18:31 | NUR ---
Problems reprioritized. Patient report given, questions answered & plan of care reviewed with Ursula MURRIETA.
[2023-05-24] MEDS ORDERED: glucagon, human recombinant 1mg kit SUBCUT PRN (18:35)
[2023-05-24] MEDS ORDERED: dextrose 50%-water 50ml dispensing syringe IV PRN ×2 (18:35)
[2023-05-24] MEDS ORDERED: DEXTROSE 15 GM of carb/4 tabs (each vial/BOTTLE has 4 tablets) PO PRN ×2 (18:35)
[2023-05-24 20:39] LABS: HEMOGLOBIN A1C 5.5 % (4.5-6.2)
[2023-05-24] MEDS: insulin glargine (Lantus) pen - multi-dose SQ SCH (21:00)
[2023-05-24] MEDS ORDERED: acetaminophen 1,000mg/100ml IV 100 ML IV ONE (22:50)
[2023-05-25] VITALS (29 sets, daily range): BP systolic 102–128; BP diastolic 74–87; PULSE 96–127; RESP 17–26; O2SAT 94–100
[2023-05-25] MEDS: FENTANYL-0.9 % NACL/PF 100 ML IV PRN ×2 (00:02→23:48)
[2023-05-25] MEDS: mineral oil/petrolatum ophthal oint EACHEYE SCH ×4 (01:37→19:55)
[2023-05-25 01:47] LABS: BASOPHILS % (AUTO) 0.2 % (0-1); EOSINOPHILS % (AUTO) 0.2 % (0-6); HEMATOCRIT 32.8 % (42.0-52.0); HEMOGLOBIN 11.1 g/dl (14.0-17.9); LYMPHOCYTES # (AUTO) 0.8 X10'3 (1.1-4.8); LYMPHOCYTES % (AUTO) 9.6 % (21-51); MEAN CORPUSCULAR HEMOGLOBIN 32.1 PG (27.0-31.0); MEAN CORPUSCULAR HGB CONC 33.9 g/dL (33.0-36.5); MEAN CORPUSCULAR VOLUME 94.6 FL (78-98); MEAN PLATELET VOLUME 7.5 FL (7.4-10.4); MONOCYTES # (AUTO) 0.4 X10'3 (0-0.9); MONOCYTES % (AUTO) 4.6 % (2-12); NEUTROPHILS % (AUTO) 85.4 % (42-75); RED BLOOD COUNT 3.47 X10'6 (4.70-6.10); RED CELL DISTRIBUTION WIDTH 16.5 % (11.5-14.5); WHITE BLOOD COUNT 8.2 X10'3 (4.5-11.0)
[2023-05-25 02:07] LABS: ALANINE AMINOTRANSFERASE 22 U/L (12-78); ALBUMIN/GLOBULIN RATIO 1.1 (1.1-1.5); ALKALINE PHOSPHATASE 88 IU/L (46-116); ANION GAP 9 (8-16); ASPARTATE AMINO TRANSFERASE 28 U/L (10-37); BILIRUBIN,TOTAL 5.9 MG/DL (0.1-1.0); BLOOD UREA NITROGEN 8 MG/DL (7-18); BUN/CREATININE RATIO 10.7 (10.0-20.0); CALCIUM 7.9 MG/DL (8.5-10.1); CHLORIDE 112 MMOL/L (99-107); CREATININE 0.75 MG/DL (0.60-1.10); GLUCOSE 134 MG/DL (70-104); MAGNESIUM 1.5 MG/DL (1.5-2.4); PHOSPHORUS 1.7 MG/DL (2.3-4.5); SODIUM 141 MMOL/L (135-145); TOTAL CARBON DIOXIDE 19.6 MMOL/L (24-32); TOTAL PROTEIN 3.9 G/DL (6.4-8.2); eCRCL 99 ML/MIN; eGFR > 90 ML/MIN
[2023-05-25 02:20] LABS: PLATELET COUNT 46 X10'3 (140-440)
[2023-05-25 02:31] LABS: POTASSIUM 2.8 MMOL/L (3.5-5.1)
[2023-05-25 03:03] LABS: ABG BASE EXCESS -6.7 mmol/L (-2.0-2.0); ABG HCO3 15.6 mmol/L (22.0-26.0); ABG OXYGEN SATURATION 97.9 % (94-97); ABG PCO2 (T) 22.4 mmHg (35.0-48.0); ABG PH (T) 7.461 (7.340-7.440); ABG PO2 (T) 114.7 mmHg (75.0-100.0); FCOHb 1.1 % (0.0-3.9); FHHb 2.1 % (0.0-5.0); FMetHb 0.3 % (0.0-1.5); FO2Hb 96.5 % (94-97); MODE Vent-AC/PRVC; PATIENT TEMPERATURE 37.2; PEEP 5 cm H2O; RESPIRATORY RATE 14 b/min; TIDAL VOLUME 500 mL; TOTAL HEMOGLOBIN 10.2 G/dl (14.0-17.9)
[2023-05-25] MEDS: sodium phosphate inj. 15 MMOL in dextrose 5%-water 250 ML IV PRN ×2 (03:08→19:55)
[2023-05-25] MEDS: potassium Cl 40MEQ/270ML bag 270 ML IV PRN ×4 (03:11→19:55)
[2023-05-25] MEDS: dextrose 5%-lactated ringers 1,000 ML IV SCH ×3 (05:50→17:10)
--- NOTE | 2023-05-25 06:36 | NUR ---
Problems reprioritized. Patient report given, questions answered & plan of care reviewed with Maria Elena MURRIETA.
[2023-05-25] MEDS: pantoprazole 40MG/NS 100ML BAG 100 ML IV SCH (07:28)
[2023-05-25] MEDS: piperacillin/tazo 4.5gm/100ml 100 ML IV SCH ×4 (07:28→23:48)
[2023-05-25] MEDS: K and/or MAG REPLACEMENT MC SCH (07:29)
[2023-05-25] MEDS: milrinone (Primacor) 20mg/D5W 100 ML IV SCH (13:30)
[2023-05-25 16:48] LABS: MAGNESIUM 1.4 MG/DL (1.5-2.4); PHOSPHORUS 1.8 MG/DL (2.3-4.5)
--- NOTE | 2023-05-25 18:20 | NUR ---
Patient in room ICU 2043. I have received report from Maria Elena MURRIETA and had the opportunity to ask questions and assume patient care.
[2023-05-25] MEDS: insulin glargine (Lantus) pen - multi-dose SQ SCH (20:12)
[2023-05-25] MEDS: vasopressin inj. 40 UNIT in normal saline 50ml IV soln 38 ML IV SCH (20:12)
[2023-05-26] VITALS (33 sets, daily range): BP systolic 97–128; BP diastolic 73–87; PULSE 102–127; RESP 16–33; O2SAT 91–100
[2023-05-26 02:43] LABS: BASOPHILS % (AUTO) 0 % (0-1); EOSINOPHILS % (AUTO) 0.3 % (0-6); HEMATOCRIT 33.9 % (42.0-52.0); HEMOGLOBIN 11.3 g/dl (14.0-17.9); LYMPHOCYTES # (AUTO) 1.9 X10'3 (1.1-4.8); LYMPHOCYTES % (AUTO) 15.9 % (21-51); MEAN CORPUSCULAR HEMOGLOBIN 31.9 PG (27.0-31.0); MEAN CORPUSCULAR HGB CONC 33.3 g/dL (33.0-36.5); MEAN CORPUSCULAR VOLUME 95.7 FL (78-98); MEAN PLATELET VOLUME 10.2 FL (7.4-10.4); MONOCYTES # (AUTO) 0.5 X10'3 (0-0.9); MONOCYTES % (AUTO) 4.1 % (2-12); NEUTROPHILS # (AUTO) 9.5 X10'3 (1.8-7.7); NEUTROPHILS % (AUTO) 79.7 % (42-75); RED BLOOD COUNT 3.55 X10'6 (4.70-6.10); RED CELL DISTRIBUTION WIDTH 16.6 % (11.5-14.5); WHITE BLOOD COUNT 11.9 X10'3 (4.5-11.0)
[2023-05-26 02:58] LABS: ALANINE AMINOTRANSFERASE 21 U/L (12-78); ALBUMIN 1.6 G/DL (3.4-5.0); ALBUMIN/GLOBULIN RATIO 0.7 (1.1-1.5); ALKALINE PHOSPHATASE 100 IU/L (46-116); ANION GAP 10 (8-16); ASPARTATE AMINO TRANSFERASE 28 U/L (10-37); BLOOD UREA NITROGEN 8 MG/DL (7-18); BUN/CREATININE RATIO 11.1 (10.0-20.0); CALCIUM 7.8 MG/DL (8.5-10.1); CHLORIDE 114 MMOL/L (99-107); CREATININE 0.72 MG/DL (0.60-1.10); GLUCOSE 129 MG/DL (70-104); MAGNESIUM 2.6 MG/DL (1.5-2.4); PHOSPHORUS 2.4 MG/DL (2.3-4.5); POTASSIUM 3.5 MMOL/L (3.5-5.1); SODIUM 145 MMOL/L (135-145); TOTAL CARBON DIOXIDE 21.2 MMOL/L (24-32); TOTAL PROTEIN 3.9 G/DL (6.4-8.2); eCRCL 106 ML/MIN; eGFR > 90 ML/MIN
[2023-05-26 03:28] LABS: PLATELET COUNT 37 X10'3 (140-440)
[2023-05-26 03:29] LABS: ABG HCO3 19.1 mmol/L (22.0-26.0); ABG PCO2 (T) 30.2 mmHg (35.0-48.0); ABG PH (T) 7.421 (7.340-7.440); ABG PO2 (T) 82.6 mmHg (75.0-100.0); ALLEN'S TEST POSITIVE; MODE VENT - AC; PATIENT TEMPERATURE 37.5; PEEP 5 cm H2O; RESPIRATORY RATE 14 b/min; TIDAL VOLUME 500 mL
[2023-05-26 03:30] LABS: ABG BASE EXCESS -4.2 mmol/L (-2.0-2.0); ABG OXYGEN SATURATION 96.2 % (94-97); FCOHb 1.5 % (0.0-3.9); FHHb 3.7 % (0.0-5.0); FMetHb 0.3 % (0.0-1.5); FO2Hb 94.5 % (94-97); TOTAL HEMOGLOBIN 12.4 G/dl (14.0-17.9)
[2023-05-26] MEDS: milrinone (Primacor) 20mg/D5W 100 ML IV SCH (03:55)
[2023-05-26] MEDS: dextrose 5%-lactated ringers 1,000 ML IV SCH ×2 (03:57→11:13)
[2023-05-26] MEDS: mineral oil/petrolatum ophthal oint EACHEYE SCH ×3 (03:57→14:00)
--- NOTE | 2023-05-26 06:28 | NUR ---
Problems reprioritized. Patient report given, questions answered & plan of care reviewed with Maria Elena MURRIETA.
[2023-05-26] MEDS: piperacillin/tazo 4.5gm/100ml 100 ML IV SCH ×2 (08:33→16:37)
[2023-05-26] MEDS: pantoprazole 40MG/NS 100ML BAG 100 ML IV SCH (08:33)
--- NOTE | 2023-05-26 11:58 | NUR ---
Nutrition consult: Pt remains intubated/sedated and is s/p abdominal re-exploration ostomy placement and G-J tube placement with wound vac in place per EMR. Per discussion during rounds pt may go back to OR for abd closure today or tomorrow. Pt receiving trickle feeds via new G-J tube of 30ml/hr per surgeon and appears to be tolerating with GRV WNL. See TF recs below once medically able to advance rate. Pt continues on D5/LR at 150 mL/hr (612 kcal/day). Pt presents with a DTI PU to sacrum per WOC note. LBM on 05/26 with 375ml output via colostomy per EMR. Will continue to monitor closely and make recommendations as able. Recommendations: 1) continue trickle feeds per surgeon using Vital HP at 30ml/hr. 2) once medically appropriate continuous TF via G-J tube using Vital AF with 70 mL/hr goal rate to provide 1680 mL total volume/day, 2016 kcal, 126 g protein, and 1362 mL water. Adjust TFs as appropriate. 2) Once TF at goal rate, additional 100 mL water flush Q4H; monitor serum Na 3) Prealbumin and TG q Friday/ 4) Discontinue D5 with initiation of nutrition support 5) Daily scaled weights 6) Bowel care per physician 7) Monitor s/s of malnutrition Addendum: 05/26/23 at [address] Amended: Links added.
[2023-05-26] MEDS: furosemide 20 MG/2 ML vial IV SCH (14:14)
--- NOTE | 2023-05-26 14:56 | NUR ---
PRESSURE ULCER EDUCATION: DEFINITION: A pressure ulcer is an area of skin that breaks down when you stay in one position too long. The constant pressure against the skin reduces the blood flow to that area and the affected tissue dies. CAUSES: "Being bedridden or in a wheelchair "Fragile skin "Having a chronic condition, such as diabetes or vascular disease "Inability to move certain parts of your body without assistance "Older age "Incontinence of urine or stool SYMPTOMS: "A reddened area that DOES NOT turn white when pressed on - this can be the beginning of a pressure ulcer "A blister, deep sore or a crater - these can be advanced pressure ulcers FIRST AID: "Relieve the pressure on this area "Keep the area clean and dry "Call your primary doctor if you see any of the above symptoms "DO NOT massage the area "DO NOT use a donut shaped or ring shaped pillow- these actually interfere with the blood flow and cause complications PREVENTION: "Check for pressure ulcers everyday "Change position at least every two hours to relieve pressure "Use items that help relieve pressure- pillows, sheepskin, foam padding, and powders. "Keep skin clean and dry "Eat healthy well balanced meals "Exercise daily IF YOU SEE ANY OF THESE SYMPTOMS WHILE IN THE HOSPITAL - TELL YOUR NURSE IMMEDIATELY. IF YOU SEE ANY OF THESE SYMPTOMS WHILE AT HOME OR HAVE ANY QUESTIONS OR CONCERNS ABOUT PRESSURE ULCERS - CALL YOUR PRIMARY DOCTOR IMMEDIATELY. Addendum: 05/26/23 at 1456 by Mariluz Barone RN Amended: Links added.
[2023-05-26] MEDS: insulin glargine (Lantus) pen - multi-dose SQ SCH (21:00)
[2023-05-27] VITALS (37 sets, daily range): BP systolic 93–133; BP diastolic 71–97; PULSE 103–117; RESP 8–22; O2SAT 95–99
[2023-05-27] MEDS: furosemide 20 MG/2 ML vial IV SCH ×3 (00:31→15:35)
[2023-05-27] MEDS: piperacillin/tazo 4.5gm/100ml 100 ML IV SCH ×3 (00:31→15:35)
[2023-05-27 03:14] LABS: ABG BASE EXCESS 0.8 mmol/L (-2.0-2.0); ABG HCO3 22.9 mmol/L (22.0-26.0); ABG OXYGEN SATURATION 97.4 % (94-97); ABG PCO2 (T) 29.7 mmHg (35.0-48.0); ABG PH (T) 7.507 (7.340-7.440); ABG PO2 (T) 94.9 mmHg (75.0-100.0); ALLEN'S TEST Modified; FCOHb 1.4 % (0.0-3.9); FHHb 2.6 % (0.0-5.0); FMetHb 0.3 % (0.0-1.5); FO2Hb 95.7 % (94-97); MODE Vent-AC/PRVC; PATIENT TEMPERATURE 37.4; PEEP 5 cm H2O; RESPIRATORY RATE 14 b/min; TIDAL VOLUME 500 mL; TOTAL HEMOGLOBIN 11.8 G/dl (14.0-17.9)
[2023-05-27 03:31] LABS: HEMATOCRIT 34.2 % (42.0-52.0); HEMOGLOBIN 11.6 g/dl (14.0-17.9); MEAN CORPUSCULAR HEMOGLOBIN 32.1 PG (27.0-31.0); MEAN CORPUSCULAR HGB CONC 33.9 g/dL (33.0-36.5)
[2023-05-27 03:33] LABS: BASOPHILS % (AUTO) 0.2 % (0-1); EOSINOPHILS # (AUTO) 0.1 X10'3 (0-0.9); EOSINOPHILS % (AUTO) 0.5 % (0-6); LYMPHOCYTES # (AUTO) 1.2 X10'3 (1.1-4.8); LYMPHOCYTES % (AUTO) 10.1 % (21-51); MEAN CORPUSCULAR VOLUME 94.7 FL (78-98); MONOCYTES # (AUTO) 0.7 X10'3 (0-0.9); MONOCYTES % (AUTO) 5.7 % (2-12); NEUTROPHILS # (AUTO) 10.3 X10'3 (1.8-7.7); NEUTROPHILS % (AUTO) 83.5 % (42-75); PLATELET COUNT 54 X10'3 (140-440); RED BLOOD COUNT 3.61 X10'6 (4.70-6.10); RED CELL DISTRIBUTION WIDTH 16.1 % (11.5-14.5); WHITE BLOOD COUNT 12.3 X10'3 (4.5-11.0)
[2023-05-27 03:42] LABS: ALANINE AMINOTRANSFERASE 30 U/L (12-78); ALBUMIN 1.6 G/DL (3.4-5.0); ALKALINE PHOSPHATASE 127 IU/L (46-116); ANION GAP 9 (8-16); ASPARTATE AMINO TRANSFERASE 41 U/L (10-37); BILIRUBIN,TOTAL 5.5 MG/DL (0.1-1.0); BLOOD UREA NITROGEN 9 MG/DL (7-18); CALCIUM 7.8 MG/DL (8.5-10.1); CHLORIDE 111 MMOL/L (99-107); CREATININE 0.82 MG/DL (0.60-1.10); GLUCOSE 96 MG/DL (70-104); MAGNESIUM 1.7 MG/DL (1.5-2.4); SODIUM 146 MMOL/L (135-145); TOTAL CARBON DIOXIDE 26.4 MMOL/L (24-32); eCRCL 93 ML/MIN; eGFR > 90 ML/MIN
[2023-05-27 03:43] LABS: ALBUMIN/GLOBULIN RATIO 0.6 (1.1-1.5); PHOSPHORUS 2.7 MG/DL (2.3-4.5); TOTAL PROTEIN 4.4 G/DL (6.4-8.2)
[2023-05-27 03:47] LABS: POTASSIUM 2.9 MMOL/L (3.5-5.1)
[2023-05-27] MEDS: potassium Cl 20 mEq SR tablet PO PRN (03:58)
[2023-05-27] MEDS: mineral oil/petrolatum ophthal oint EACHEYE SCH ×4 (03:59→14:06)
--- NOTE | 2023-05-27 04:04 | NUR ---
art line no longer functioning; does not draw back after troubleshooting; Waveform dampening; BP cuff on and functioning; will d/c a line
--- NOTE | 2023-05-27 06:00 | NUR ---
Patient in room ICU 2043. I have received report from Nima MURRIETA and had the opportunity to ask questions and assume patient care.
[2023-05-27] MEDS: dextrose 5%-lactated ringers 1,000 ML IV SCH ×2 (06:50→13:44)
[2023-05-27] MEDS: pantoprazole 40MG/NS 100ML BAG 100 ML IV SCH (07:46)
[2023-05-27] MEDS: potassium Cl 40MEQ/270ML bag 270 ML IV PRN ×2 (08:59→15:35)
[2023-05-27] MEDS: fondaparinux 2.5 MG/0.5 ML syringe SUBCUT SCH (10:50)
[2023-05-27] MEDS: linezolid 600mg/300ml PREMIX 300 ML IV SCH (11:39)
[2023-05-27] MEDS: FENTANYL-0.9 % NACL/PF 100 ML IV PRN (13:00)
--- NOTE | 2023-05-27 18:23 | NUR ---
Problems reprioritized. Patient report given, questions answered & plan of care reviewed with Srikanth MURRIETA.
[2023-05-27] MEDS ORDERED: albumin (Human) 5% 250ml BOTTLE IV ONE (19:45)
[2023-05-27] MEDS ORDERED: sevoflurane 250ml liquid IH ONE (19:45)
[2023-05-27] MEDS ORDERED: midazolam 1 mg/ML 2ml injection IV PRN (20:30)
[2023-05-27] MEDS ORDERED: fentaNYL/PF 50MCG/1 ML 2ML syringe IV PRN (20:30)
[2023-05-27] MEDS ORDERED: rocuronium 10mg/ml inj IV ONE (20:37)
[2023-05-28] VITALS (28 sets, daily range): BP systolic 100–128; BP diastolic 63–90; PULSE 89–112; RESP 11–24; O2SAT 95–100
[2023-05-28] MEDS: piperacillin/tazo 4.5gm/100ml 100 ML IV SCH ×3 (00:15→15:57)
[2023-05-28] MEDS: furosemide 20 MG/2 ML vial IV SCH ×3 (00:21→15:57)
[2023-05-28] MEDS: linezolid 600mg/300ml PREMIX 300 ML IV SCH ×3 (01:58→22:36)
[2023-05-28 02:39] LABS: BASOPHILS % (AUTO) 0.3 % (0-1); EOSINOPHILS # (AUTO) 0.1 X10'3 (0-0.9); EOSINOPHILS % (AUTO) 0.6 % (0-6); HEMATOCRIT 33.1 % (42.0-52.0); HEMOGLOBIN 11.3 g/dl (14.0-17.9); MEAN CORPUSCULAR HEMOGLOBIN 32.1 PG (27.0-31.0); MEAN CORPUSCULAR HGB CONC 34.1 g/dL (33.0-36.5); MEAN CORPUSCULAR VOLUME 94.2 FL (78-98); MEAN PLATELET VOLUME 10.1 FL (7.4-10.4); MONOCYTES # (AUTO) 0.5 X10'3 (0-0.9); NEUTROPHILS # (AUTO) 9.9 X10'3 (1.8-7.7); NEUTROPHILS % (AUTO) 86.1 % (42-75); PLATELET COUNT 94 X10'3 (140-440); RED BLOOD COUNT 3.51 X10'6 (4.70-6.10); RED CELL DISTRIBUTION WIDTH 15.5 % (11.5-14.5); WHITE BLOOD COUNT 11.5 X10'3 (4.5-11.0)
[2023-05-28 02:50] LABS: ALANINE AMINOTRANSFERASE 25 U/L (12-78); ALBUMIN 1.8 G/DL (3.4-5.0); ALKALINE PHOSPHATASE 116 IU/L (46-116); ANION GAP 12 (8-16); ASPARTATE AMINO TRANSFERASE 33 U/L (10-37); BILIRUBIN,TOTAL 5.5 MG/DL (0.1-1.0); BLOOD UREA NITROGEN 12 MG/DL (7-18); BUN/CREATININE RATIO 13.3 (10.0-20.0); CALCIUM 7.7 MG/DL (8.5-10.1); CHLORIDE 109 MMOL/L (99-107); GLUCOSE 106 MG/DL (70-104); MAGNESIUM 1.7 MG/DL (1.5-2.4); SODIUM 145 MMOL/L (135-145); TOTAL CARBON DIOXIDE 24.1 MMOL/L (24-32); eCRCL 85 ML/MIN; eGFR 87 ML/MIN
[2023-05-28 02:53] LABS: ALBUMIN/GLOBULIN RATIO 0.7 (1.1-1.5); PHOSPHORUS 3.9 MG/DL (2.3-4.5); POTASSIUM 2.9 MMOL/L (3.5-5.1); TOTAL PROTEIN 4.5 G/DL (6.4-8.2)
[2023-05-28] MEDS: potassium Cl 40MEQ/270ML bag 270 ML IV PRN (03:09)
[2023-05-28 03:11] LABS: ABG BASE EXCESS -0.2 mmol/L (-2.0-2.0); ABG HCO3 22.6 mmol/L (22.0-26.0); ABG OXYGEN SATURATION 97.8 % (94-97); ABG PCO2 (T) 31.8 mmHg (35.0-48.0); ABG PH (T) 7.472 (7.340-7.440); ABG PO2 (T) 107.2 mmHg (75.0-100.0); FCOHb 1.3 % (0.0-3.9); FHHb 2.2 % (0.0-5.0); FMetHb 0.3 % (0.0-1.5); FO2Hb 96.2 % (94-97); MODE ac/prvc; PATIENT TEMPERATURE 37.7; PEEP 5 cm H2O; RESPIRATORY RATE 14 b/min; TIDAL VOLUME 500 mL; TOTAL HEMOGLOBIN 11.5 G/dl (14.0-17.9)
[2023-05-28] MEDS: pantoprazole 40MG/NS 100ML BAG 100 ML IV SCH (07:05)
[2023-05-28] MEDS: potassium Cl 20 mEq SR tablet PO PRN (07:06)
[2023-05-28] MEDS ORDERED: HYDROmorphone/PF 0.2 MG/ML SYRINGE IV PRN ×2 (09:05)
[2023-05-28] MEDS: sodium chloride 0.45% 1,000 ML IV SCH (11:16)
[2023-05-28] MEDS: fondaparinux 2.5 MG/0.5 ML syringe SUBCUT SCH (11:23)
--- NOTE | 2023-05-28 11:41 | NUR ---
Reassessment: Per EMR pt POD #1 s/p abdominal closure. Fascia still open per RN at [facility]. New orders in place today for pt to get extubated. Per RN pt to continue with trickle TF at 30 mL/hr per surgeon. LBM 05/27 with 275 mL output which is significantly reduced from the previous days per I&O. Noted pt started on Linezolid, low tyramine nutrition therapy education not appropriate at this time. Will continue to follow closely. Recommendations: 1) Continuous trickle TF via G-J tube per surgeon using Vital AF at 30 mL/hr to provide 720 mL total volume/day, 864 kcal, 54 g protein, and 584 mL water 2) Once okay to increase TF goal rate, continuous TF via G-J tube using Vital AF with 70 mL/hr goal rate to provide 1680 mL total volume/day, 2016 kcal, 126 g protein, and 1362 mL water 3) Once TF at goal rate, additional 100 mL water flush Q4H; monitor serum Na 4) Prealbumin and TG q Friday/ 5) Advance to low fiber diet as medically indicated following extubation; continue TF until pt with adequate PO intake 6) Daily scaled weights 7) Bowel care per physician 8) Monitor s/s of malnutrition 9) Low tyramine and colostomy nutrition therapy educations as appropriate Addendum: 05/28/23 at [address] Amended: Links added.
[2023-05-29] VITALS (21 sets, daily range): BP systolic 103–134; BP diastolic 64–80; PULSE 86–102; RESP 11–26; TEMP 98.2–98.4; O2SAT 95–100
[2023-05-29] MEDS: furosemide 20 MG/2 ML vial IV SCH ×3 (00:07→16:50)
[2023-05-29] MEDS: piperacillin/tazo 4.5gm/100ml 100 ML IV SCH ×3 (00:08→17:11)
[2023-05-29] MEDS: mineral oil/petrolatum ophthal oint EACHEYE SCH ×2 (02:00→08:46)
[2023-05-29] MEDS: sodium chloride 0.45% 1,000 ML IV SCH ×2 (06:50→20:08)
[2023-05-29 07:14] LABS: BASOPHILS % (AUTO) 0.1 % (0-1); EOSINOPHILS # (AUTO) 0.2 X10'3 (0-0.9); EOSINOPHILS % (AUTO) 1.6 % (0-6); HEMATOCRIT 32.5 % (42.0-52.0); HEMOGLOBIN 11.3 g/dl (14.0-17.9); LYMPHOCYTES # (AUTO) 0.9 X10'3 (1.1-4.8); LYMPHOCYTES % (AUTO) 7.3 % (21-51); MEAN CORPUSCULAR HGB CONC 34.8 g/dL (33.0-36.5); MEAN CORPUSCULAR VOLUME 94.7 FL (78-98); MEAN PLATELET VOLUME 9.8 FL (7.4-10.4); MONOCYTES # (AUTO) 0.7 X10'3 (0-0.9); MONOCYTES % (AUTO) 5.7 % (2-12); NEUTROPHILS # (AUTO) 10.2 X10'3 (1.8-7.7); NEUTROPHILS % (AUTO) 85.3 % (42-75); PLATELET COUNT 152 X10'3 (140-440); RED BLOOD COUNT 3.43 X10'6 (4.70-6.10); RED CELL DISTRIBUTION WIDTH 15.5 % (11.5-14.5); WHITE BLOOD COUNT 11.9 X10'3 (4.5-11.0)
[2023-05-29 07:31] LABS: ALANINE AMINOTRANSFERASE 26 U/L (12-78); ALBUMIN 1.7 G/DL (3.4-5.0); ALKALINE PHOSPHATASE 119 IU/L (46-116); ANION GAP 8 (8-16); ASPARTATE AMINO TRANSFERASE 30 U/L (10-37); BILIRUBIN,TOTAL 4.8 MG/DL (0.1-1.0); BLOOD UREA NITROGEN 11 MG/DL (7-18); BUN/CREATININE RATIO 12.8 (10.0-20.0); CALCIUM 7.9 MG/DL (8.5-10.1); CHLORIDE 105 MMOL/L (99-107); CREATININE 0.86 MG/DL (0.60-1.10); GLUCOSE 99 MG/DL (70-104); MAGNESIUM 1.7 MG/DL (1.5-2.4); PREALBUMIN 10.2 MG/DL (19-36); SODIUM 140 MMOL/L (135-145); TOTAL CARBON DIOXIDE 27.3 MMOL/L (24-32); eCRCL 89 ML/MIN; eGFR > 90 ML/MIN
[2023-05-29 07:37] LABS: POTASSIUM 2.7 MMOL/L (3.5-5.1)
[2023-05-29 07:44] LABS: ALBUMIN/GLOBULIN RATIO 0.5 (1.1-1.5); PHOSPHORUS 3.1 MG/DL (2.3-4.5); TOTAL PROTEIN 4.8 G/DL (6.4-8.2)
[2023-05-29] MEDS: fondaparinux 2.5 MG/0.5 ML syringe SUBCUT SCH (08:47)
[2023-05-29] MEDS: pantoprazole 40MG/NS 100ML BAG 100 ML IV SCH (08:47)
--- NOTE | 2023-05-29 10:46 | NUR ---
Reassessment: Per EMR pt extubated 05/28. Pt continues receiving trickle TF and PO diet was advanced to clear liquids per ST recs this morning. D/w recommendation for PO diet liberalization to full liquids since TF is a full liquid, agreed. Will continue to follow closely. Addendum: 05/29/23 at [address] Amended: Links added.
[2023-05-29] MEDS: linezolid 600mg/300ml PREMIX 300 ML IV SCH (12:05)
[2023-05-29] MEDS: potassium Cl 40MEQ/270ML bag 270 ML IV PRN (12:10)
--- NOTE | 2023-05-29 16:21 | NUR ---
Patient in room ICU 2044. I have received report from Lissa MURRIETA and had the opportunity to ask questions and assume patient care.
--- NOTE | 2023-05-29 16:30 | NUR ---
PATIENT TRANSFERRED TO PCU ROOM 3028B. SENT UP WITH PERSONAL BELONGINGS, IV MEDICATIONS AND CHART.
--- NOTE | 2023-05-29 17:32 | NUR ---
PATIENT RESPONDS WITH WORD FLIGHTS WHEN ASKED QUESTIONS. Spoke with ayala boucher with regards this.she will follow patient. . patient has G/J tube colostomy and carpenter. wound to mid abdomen CDI.
--- NOTE | 2023-05-29 19:01 | NUR ---
Problems reprioritized. Patient report given, questions answered & plan of care reviewed with Darcie MURRIETA.
--- NOTE | 2023-05-29 21:21 | NUR ---
Patient potassium level 2.5, Dr. Collier notified, order electrolyte replacement protocol.
[2023-05-29] MEDS: K and/or MAG REPLACEMENT MC SCH (21:30)
[2023-05-29] MEDS: potassium Cl 40MEQ/1/2NS 520ml 520 ML IV PRN (22:37)
[2023-05-30] VITALS (9 sets, daily range): BP systolic 97–122; BP diastolic 62–73; PULSE 60–91; RESP 12–22; TEMP 97.3–98; O2SAT 90–99
[2023-05-30] MEDS: furosemide 20 MG/2 ML vial IV SCH ×2 (00:09→07:52)
[2023-05-30] MEDS: linezolid 600mg/300ml PREMIX 300 ML IV SCH ×3 (00:11→23:16)
--- NOTE | 2023-05-30 01:00 | NUR ---
Small open area noted at bottom left edge of colonoscopy border, area cleansed with saline, photos taken, non stick dressing applied.
[2023-05-30] MEDS: piperacillin/tazo 4.5gm/100ml 100 ML IV SCH ×3 (02:32→16:49)
[2023-05-30] MEDS: potassium Cl 40MEQ/1/2NS 520ml 520 ML IV PRN (03:03)
[2023-05-30] MEDS ORDERED: diazepam inj 5 MG/ML inj. IV PRN ×2 (06:00→10:00)
--- NOTE | 2023-05-30 06:07 | NUR ---
Soft restraints to both upper wrists to keep patient from pulling out IV, carpenter and other tubes. Restraints released q 2 hours and circulation checks done, patient turned and positioned.
--- NOTE | 2023-05-30 06:43 | NUR ---
Patient report given, questions answered & plan of care reviewed with GLENNY Oliva
[2023-05-30 07:39] LABS: BASOPHILS # (AUTO) 0.1 X10'3 (0-0.2); BASOPHILS % (AUTO) 0.9 % (0-1); EOSINOPHILS # (AUTO) 0.2 X10'3 (0-0.9); HEMATOCRIT 35.3 % (42.0-52.0); HEMOGLOBIN 12.6 g/dl (14.0-17.9); LYMPHOCYTES # (AUTO) 0.6 X10'3 (1.1-4.8); LYMPHOCYTES % (AUTO) 5.8 % (21-51); MEAN CORPUSCULAR HEMOGLOBIN 33.3 PG (27.0-31.0); MEAN CORPUSCULAR HGB CONC 35.5 g/dL (33.0-36.5); MEAN CORPUSCULAR VOLUME 93.8 FL (78-98); MEAN PLATELET VOLUME 9.2 FL (7.4-10.4); MONOCYTES # (AUTO) 0.5 X10'3 (0-0.9); NEUTROPHILS % (AUTO) 86.3 % (42-75); PLATELET COUNT 232 X10'3 (140-440); RED BLOOD COUNT 3.77 X10'6 (4.70-6.10); RED CELL DISTRIBUTION WIDTH 15.5 % (11.5-14.5); WHITE BLOOD COUNT 10.4 X10'3 (4.5-11.0)
[2023-05-30 07:58] LABS: ALANINE AMINOTRANSFERASE 33 U/L (12-78); ALBUMIN 1.8 G/DL (3.4-5.0); ALKALINE PHOSPHATASE 175 IU/L (46-116); ANION GAP 11 (8-16); ASPARTATE AMINO TRANSFERASE 37 U/L (10-37); BLOOD UREA NITROGEN 9 MG/DL (7-18); BUN/CREATININE RATIO 10.8 (10.0-20.0); CALCIUM 8.2 MG/DL (8.5-10.1); CHLORIDE 101 MMOL/L (99-107); CREATININE 0.83 MG/DL (0.60-1.10); GLUCOSE 82 MG/DL (70-104); MAGNESIUM 1.7 MG/DL (1.5-2.4); POTASSIUM 3.1 MMOL/L (3.5-5.1); SODIUM 136 MMOL/L (135-145); TOTAL CARBON DIOXIDE 24.5 MMOL/L (24-32); eCRCL 92 ML/MIN; eGFR > 90 ML/MIN
[2023-05-30] MEDS: K and/or MAG REPLACEMENT MC SCH (08:00)
[2023-05-30] MEDS: pantoprazole 40MG/NS 100ML BAG 100 ML IV SCH (08:00)
[2023-05-30 08:10] LABS: ALBUMIN/GLOBULIN RATIO 0.5 (1.1-1.5); PHOSPHORUS 2.8 MG/DL (2.3-4.5); TOTAL PROTEIN 5.2 G/DL (6.4-8.2)
[2023-05-30 10:30] LABS: C-REACTIVE PROTEIN 11.64 MG/DL (0.0-0.5)
[2023-05-30] MEDS ORDERED: morphine 2 MG/ML inj. syringe IV PRN (12:15)
--- NOTE | 2023-05-30 12:15 | NUR ---
OSTOMY FACTS: Almost everyone has know of, or met, businessmen, entertainers, athletes, and people from all walks of life who have an ostomy. Ostomates (a person that has an ostomy) can ski, ride horses, bowl, and get healthy exercise in countless ways. Your usual activities of daily living can be resumed as soon as you are able. Gradually you will be able to wear the clothes worn before surgery. With modern pouches, nothing is noticeable under your clothing. It may be difficult at first to believe that an intimate relationship can be possible when one's body has been disfigured by surgery. This is not true. Love, fortunately, is not easily destroyed when it is based on genuine appreciation of a person as a thinking, feeling, reacting human being. AN OSTOMY IS NOT AN IMPAIRMENT!! DEFINITIONS: 1.OSTOMY: An opening that is created by a surgical procedure. The opening is called a "stoma". 2.STOMA: A surgical opening in the abdomen (belly) where intestine is brought through the abdominal wall and connected at the skin level. A stoma is shiny, wet and at first is dark purple but eventually turns pink, similar to the inside lining of your mouth. 3.COLON: A portion of the large bowel. 4.COLOSTOMY: A fecal diversion with an opening, (stoma) created anywhere along the colon. Making a connection between the colon and the abdominal wall. 5.ILLEOSTOMY: A fecal diversion with an opening, (stoma) created in the small intestine. Making a connection between the small intestine and the abdominal wall. 6.UROSTOMY: A urinary diversion with the ureters connected to a segment of the small bowel and one end is brought out and connected to the abdominal wall, creating a stoma. SHAPES and SIZES: "The stoma is usually round or oval. "It is anywhere from a dime to half dollar in size. "A stoma reaches its permanent size 6-8 weeks after surgery. PRODUCTS: 1.POUCH or APPLIANCE: An external device to contain stool or urine output and protect the skin around the stoma. It can be a one piece pouch or two pieces (a pouch and a wafer). 2.BARRIER: Substance that is used to protect the skin around the stoma from drainage and adhesive. 3.SKIN PREP or SEALANT: Product applied to the skin to reduce injury from moisture, drainage, or repeated pouch removal. Available in spray or wipes. 4.CLOSURE or CLAMP: A device used to close the bottom of a drainable pouch. 5.BRIDGE or ISABEL: A piece of plastic placed under a loop of bowel on the skins surface, to secure the bowel in place while the skin heals. POUCH CHANGE PROCEEDURE: 1.Assemble all the supplies "1 or 2 piece appliance "Ostomy paste (if needed) "Ostomy powder (if needed) "Skin prep wipes ( not recommended with coloplast products) "Moist wash cloth or cotton balls 2.Remove plastic center and paper backing from pouch. If pouch or wafer is not precut, use the sizing guide, or plastic backing from pouch to make a pattern. Do this by placing the paper over the stoma and trace it, or draw a pattern. Cut the wafer to fit and set it aside. 3.Remove old pouch by lifting up on tape while pressing skin down away from the tape. If there is a clip on your pouch, remove it and save it. 4.Clean skin or stoma with moistened wash cloth or cotton balls. Place a clean cotton ball over stoma hole to catch any drainage. Let skin dry. 5.For grooves or uneven areas in the skin- apply ostomy paste and sprinkle with ostomy powder, then gently shape the past so the area around the stoma is smooth and as flat as possible. Wipe off or blow away excess. Blot powder with skin prep wipe (DO NOT wipe powder). Let dry until no longer sticky. 6.For irritated or reddened skin- sprinkle ostomy powder on red or irritated area. Wipe off or blow away excess. Blot powder with skin prep wipe (DO NOT wipe powder). Let dry until no longer sticky. 7.Apply skin prep wipe to skin to which the pouch and tape will adhere. Let dry until no longer sticky. 8.If you have a one piece appliance- apply pouch so it is centered around the stoma. No skin should be exposed to stool. All skin should be covered by paste or pouch. 9.If you have a two piece appliance- Apply the wafer as described above, then snap or stick pouch onto wafer. Check to make sure wafer and pouch are securely connected. 10.Place clip on bottom of pouch. 11.Empty pouch when 1/3 full. OSTOMY SKIN CARE: "Good health care and nutrition are essential for healthy skin. "Usually a correct pouch size will prevent skin breakdown. "Use warm water and soap for skin cleansing. "Do not use creams or oil based products on skin around the stoma. This will prevent the appliance from sticking. "Use skin prep around the stoma. IT CAN TAKE 24 HOURS TO SEVERAL DAYS FOR SKIN TO HEAL. IF IT IS NOT RESOLVING, OR GETTING WORSE, CALL YOUR PRIMARY CARE DOCTOR. Addendum: 05/30/23 at 1215 by Mariluz Barone RN Amended: Links added.
[2023-05-30] MEDS: normal saline 1000ml 1,000 ML IV SCH (12:18)
--- NOTE | 2023-05-30 12:29 | NUR ---
sent to [facility]: [id number]: pt is very agitated. unable to calm down. hr in 180's. may i please have something to calm him down. He is in bilat wrist restraints but is still very angry. thank you. Hannah MURRIETA [id number]
[2023-05-30] MEDS: fondaparinux 2.5 MG/0.5 ML syringe SUBCUT SCH (13:55)
[2023-05-30] MEDS: thiamine 100mg/ml 2ml inj. IV SCH (16:48)
[2023-05-30] MEDS: folic acid 1mg tablet PO SCH (16:48)
[2023-05-30] MEDS: LORazepam 2 mg/ml vial IV PRN (17:57)
--- NOTE | 2023-05-30 19:15 | NUR ---
Patient in room PCU 3028. I have received report from ALESSIA MURRIETA and had the opportunity to ask questions and assume patient care.
[2023-05-30] MEDS ORDERED: enoxaparin 40mg/0.4ml syringe SUBCUT SCH (20:00)
[2023-05-31] VITALS (12 sets, daily range): BP systolic 109–146; BP diastolic 63–83; PULSE 60–117; RESP 12–35; TEMP 97–98.5; O2SAT 92–99
[2023-05-31] MEDS: piperacillin/tazo 4.5gm/100ml 100 ML IV SCH ×3 (00:27→16:03)
[2023-05-31] MEDS: normal saline 1000ml 1,000 ML IV SCH ×2 (02:33→11:56)
--- NOTE | 2023-05-31 06:54 | NUR ---
Problems reprioritized. Patient report given, questions answered & plan of care reviewed with ROBERT MURRIETA.
[2023-05-31] MEDS: K and/or MAG REPLACEMENT MC SCH ×2 (08:00→20:12)
[2023-05-31] MEDS: folic acid 1mg tablet PO SCH (08:13)
[2023-05-31] MEDS: fondaparinux 2.5 MG/0.5 ML syringe SUBCUT SCH (08:17)
[2023-05-31] MEDS: thiamine 100mg/ml 2ml inj. IV SCH (08:17)
[2023-05-31 09:26] LABS: BASOPHILS % (AUTO) 0.4 % (0-1); EOSINOPHILS # (AUTO) 0.3 X10'3 (0-0.9); EOSINOPHILS % (AUTO) 2.2 % (0-6); HEMATOCRIT 36.4 % (42.0-52.0); HEMOGLOBIN 12.2 g/dl (14.0-17.9); LYMPHOCYTES # (AUTO) 0.9 X10'3 (1.1-4.8); LYMPHOCYTES % (AUTO) 7.9 % (21-51); MEAN CORPUSCULAR HEMOGLOBIN 31.8 PG (27.0-31.0); MEAN CORPUSCULAR HGB CONC 33.4 g/dL (33.0-36.5); MEAN CORPUSCULAR VOLUME 94.9 FL (78-98); MEAN PLATELET VOLUME 9.3 FL (7.4-10.4); MONOCYTES # (AUTO) 0.6 X10'3 (0-0.9); MONOCYTES % (AUTO) 4.7 % (2-12); NEUTROPHILS # (AUTO) 9.8 X10'3 (1.8-7.7); NEUTROPHILS % (AUTO) 84.8 % (42-75); PLATELET COUNT 340 X10'3 (140-440); RED BLOOD COUNT 3.83 X10'6 (4.70-6.10); RED CELL DISTRIBUTION WIDTH 16.1 % (11.5-14.5); WHITE BLOOD COUNT 11.6 X10'3 (4.5-11.0)
[2023-05-31 09:34] LABS: ALANINE AMINOTRANSFERASE 35 U/L (12-78); ALKALINE PHOSPHATASE 213 IU/L (46-116); ANION GAP 11 (8-16); ASPARTATE AMINO TRANSFERASE 47 U/L (10-37); BLOOD UREA NITROGEN 5 MG/DL (7-18); BUN/CREATININE RATIO 6.4 (10.0-20.0); CALCIUM 8.1 MG/DL (8.5-10.1); CHLORIDE 99 MMOL/L (99-107); CREATININE 0.78 MG/DL (0.60-1.10); GLUCOSE 74 MG/DL (70-104); MAGNESIUM 1.7 MG/DL (1.5-2.4); SODIUM 134 MMOL/L (135-145); TOTAL CARBON DIOXIDE 24.4 MMOL/L (24-32); eCRCL 83 ML/MIN; eGFR > 90 ML/MIN
[2023-05-31 09:36] LABS: ALBUMIN/GLOBULIN RATIO 0.5 (1.1-1.5); PHOSPHORUS 2.7 MG/DL (2.3-4.5); TOTAL PROTEIN 5.7 G/DL (6.4-8.2)
[2023-05-31 09:42] LABS: POTASSIUM 2.5 MMOL/L (3.5-5.1)
[2023-05-31] MEDS: potassium Cl 20 mEq SR tablet PO PRN ×3 (10:04→17:23)
[2023-05-31] MEDS: pantoprazole 40MG/NS 100ML BAG 100 ML IV SCH (10:14)
--- NOTE | 2023-05-31 10:47 | NUR ---
Attempted to release restraints, patient was good from [address] Perry at bedside with patient attempting to get out of bed and lines pulling. Dr. Perry would like to keep restraints on at this time.
[2023-05-31] MEDS: linezolid 600mg/300ml PREMIX 300 ML IV SCH ×2 (12:04→23:18)
[2023-05-31] MEDS: LORazepam 2 mg/ml vial IV PRN (12:38)
--- NOTE | 2023-05-31 13:40 | NUR ---
Patient ate 3/4 of his ice cream, 3/4 of a yogurt and 100% of his apple juice, with a lot of encouragement.
--- NOTE | 2023-05-31 14:17 | NUR ---
Reassessment: Pt continues on full liquid diet and eating poorly, documented with 75% PO intake of first meal with 0% PO intake of four meals. Pt visualized at bedside, confused and with NO tube feed running. Unsure of when TF was discontinued as there is no documentation indicating it was discontinued. D/w bedside RN who states this is her first day with pt and he was not on TF when she received his care so she is unsure of when it stopped. D/w RN patient's poor PO intake and need for nutrition support IF pt does not eat. Per RN pt isn't eating because he keeps thinking his SO is bringing food in. RN states she will feed/encourage pt to eat. Noted RN documented pt consumed 3/4 ice cream and yogurt with 100% PO intake of apple juice with a lot of encouragement. Recommend Ensure Enlive TID to optimize nutrient intake, to be sent pending physician approval in EMR. LBM 05/30 with 1200 mL stool output per I&O. Will continue to follow closely and make recommendations as appropriate. Recommendations: 1) Advance to low fiber diet as medically indicated 2) Ensure Enlive TID, pending physician approval in EMR 3) Encourage PO intake and assist with meals 4) Resume TF if PO intake does not improve 5) Daily scaled weights 6) Bowel care per physician 7) Monitor s/s of malnutrition 8) Low tyramine and colostomy nutrition therapy educations as appropriate Addendum: 05/31/23 at [address] Amended: Links added.
[2023-05-31] MEDS ORDERED: magnesium Cl slow-release 64mg tablet PO PRN (15:35)
[2023-05-31] MEDS ORDERED: magnesium 4gm in 100ml NS 100 ML IV PRN (15:35)
[2023-05-31] MEDS ORDERED: magnesium 2GM in 50ml NS 50 ML IV PRN (15:35)
[2023-05-31] MEDS ORDERED: lactose-reduced food (Ensure Enlive) - 237ml bottle PO SCH (18:00)
--- NOTE | 2023-05-31 18:22 | NUR ---
Report given to SHAYE garcia RN
[2023-05-31] MEDS: morphine 2 MG/ML inj. syringe IV PRN (23:37)
[2023-06-01] VITALS (9 sets, daily range): BP systolic 104–118; BP diastolic 60–72; PULSE 95–109; RESP 14–21; TEMP 97.7–99; O2SAT 95–99
[2023-06-01] MEDS: piperacillin/tazo 4.5gm/100ml 100 ML IV SCH ×3 (00:56→16:01)
[2023-06-01] MEDS: nicotine 7mg patch - 24hr TD SCH ×2 (01:48→08:36)
--- NOTE | 2023-06-01 06:21 | NUR ---
Report received from Micaela MURRIETA
--- NOTE | 2023-06-01 06:25 | NUR ---
Problems reprioritized. Patient report given, questions answered & plan of care reviewed with ROBERT MURRIETA.
[2023-06-01 06:51] LABS: ALANINE AMINOTRANSFERASE 29 U/L (12-78); ALBUMIN 1.8 G/DL (3.4-5.0); ALKALINE PHOSPHATASE 177 IU/L (46-116); ANION GAP 12 (8-16); ASPARTATE AMINO TRANSFERASE 39 U/L (10-37); BILIRUBIN,TOTAL 4.2 MG/DL (0.1-1.0); BLOOD UREA NITROGEN 3 MG/DL (7-18); BUN/CREATININE RATIO 4.6 (10.0-20.0); CHLORIDE 105 MMOL/L (99-107); CREATININE 0.65 MG/DL (0.60-1.10); GLUCOSE 77 MG/DL (70-104); SODIUM 137 MMOL/L (135-145); TOTAL CARBON DIOXIDE 20.3 MMOL/L (24-32); eCRCL 92 ML/MIN; eGFR > 90 ML/MIN
[2023-06-01 07:04] LABS: ALBUMIN/GLOBULIN RATIO 0.5 (1.1-1.5); PHOSPHORUS 2.8 MG/DL (2.3-4.5); POTASSIUM 4.2 MMOL/L (3.5-5.1); TOTAL PROTEIN 5.2 G/DL (6.4-8.2)
[2023-06-01] MEDS: K and/or MAG REPLACEMENT MC SCH ×2 (08:00→20:00)
[2023-06-01] MEDS: pantoprazole 40MG/NS 100ML BAG 100 ML IV SCH (08:24)
[2023-06-01] MEDS: thiamine 100mg/ml 2ml inj. IV SCH (08:28)
[2023-06-01] MEDS: folic acid 1mg tablet PO SCH (08:31)
[2023-06-01] MEDS: fondaparinux 2.5 MG/0.5 ML syringe SUBCUT SCH (08:34)
[2023-06-01 10:03] LABS: BASOPHILS # (AUTO) 0.1 X10'3 (0-0.2); EOSINOPHILS # (AUTO) 0.1 X10'3 (0-0.9); MEAN PLATELET VOLUME 8.5 FL (7.4-10.4); MONOCYTES # (AUTO) 0.7 X10'3 (0-0.9); NEUTROPHILS % (AUTO) 85.3 % (42-75)
[2023-06-01 10:05] LABS: BASOPHILS % (AUTO) 0.4 % (0-1); HEMATOCRIT 30.4 % (42.0-52.0); HEMOGLOBIN 10.1 g/dl (14.0-17.9); LYMPHOCYTES # (AUTO) 1.1 X10'3 (1.1-4.8); LYMPHOCYTES % (AUTO) 7.8 % (21-51); MEAN CORPUSCULAR HEMOGLOBIN 31.8 PG (27.0-31.0); MEAN CORPUSCULAR HGB CONC 33.2 g/dL (33.0-36.5); MEAN CORPUSCULAR VOLUME 95.7 FL (78-98); MONOCYTES % (AUTO) 5.5 % (2-12); NEUTROPHILS # (AUTO) 11.7 X10'3 (1.8-7.7); PLATELET COUNT 368 X10'3 (140-440); RED BLOOD COUNT 3.18 X10'6 (4.70-6.10); RED CELL DISTRIBUTION WIDTH 16.4 % (11.5-14.5); WHITE BLOOD COUNT 13.7 X10'3 (4.5-11.0)
[2023-06-01] MEDS: linezolid 600mg/300ml PREMIX 300 ML IV SCH ×2 (10:58→23:28)
[2023-06-01] MEDS: morphine 2 MG/ML inj. syringe IV PRN ×2 (11:01→23:28)
--- NOTE | 2023-06-01 14:07 | NUR ---
Student documentation: I have reviewed all interventions, assessments performed and documented by Sonny FAUST of [facility]. Student Medication Administration: For this medication-pass' in the time frame of 9272-1560, all medication were reviewed, dispensed, administered and documented per hospital policy by Sonny FAUST of [facility].
[2023-06-01] MEDS: normal saline 1000ml 1,000 ML IV SCH ×2 (15:54→21:27)
--- NOTE | 2023-06-01 16:43 | NUR ---
Patients family at the bed side today for a short period of time. Encouraged intake, got him to eat his icecream and drink a cranberry juice 100%. Patient has been adjusted continually but keeps wiggling him self off his pillows and pulls them out, ending up on the floor even with restraints on.
--- NOTE | 2023-06-01 18:07 | NUR ---
Report given to Micaela MURRIETA
--- NOTE | 2023-06-01 18:33 | NUR ---
Patient in room PCU 3028. I have received report from ELENA MURRIETA and had the opportunity to ask questions and assume patient care.
--- NOTE | 2023-06-01 21:17 | NUR ---
PATIENT PULLED THE G/J TUBE OUT WHILE STILL IN RESTRAINTS. NOTIFIED QUARTER INSPECTOR SURGEON (DOCTOR ELLINGTON). DRESSING APPLIED AND WILL CONTINUE TO MONITOR.
[2023-06-02] MEDS: piperacillin/tazo 4.5gm/100ml 100 ML IV SCH ×2 (00:41→07:17)
[2023-06-02 02:00] VITALS: BP 157/95; PULSE 95; RESP 22; TEMP 97.6; O2SAT 92
--- NOTE | 2023-06-02 06:34 | NUR ---
Problems reprioritized. Patient report given, questions answered & plan of care reviewed with ROBERT MURRIETA.
[2023-06-02 07:02] VITALS: BP 106/60; PULSE 75; RESP 19; TEMP 97.9; O2SAT 93
[2023-06-02 07:11] LABS: BASOPHILS # (AUTO) 0.1 X10'3 (0-0.2); BASOPHILS % (AUTO) 0.6 % (0-1); EOSINOPHILS # (AUTO) 0.2 X10'3 (0-0.9); EOSINOPHILS % (AUTO) 1.4 % (0-6); HEMATOCRIT 26.4 % (42.0-52.0); LYMPHOCYTES # (AUTO) 0.9 X10'3 (1.1-4.8); LYMPHOCYTES % (AUTO) 6.9 % (21-51); MEAN CORPUSCULAR HEMOGLOBIN 32.5 PG (27.0-31.0); MEAN CORPUSCULAR HGB CONC 33.9 g/dL (33.0-36.5); MEAN CORPUSCULAR VOLUME 95.7 FL (78-98); MEAN PLATELET VOLUME 8.3 FL (7.4-10.4); MONOCYTES % (AUTO) 7.6 % (2-12); NEUTROPHILS # (AUTO) 11.1 X10'3 (1.8-7.7); NEUTROPHILS % (AUTO) 83.5 % (42-75); PLATELET COUNT 375 X10'3 (140-440); RED BLOOD COUNT 2.76 X10'6 (4.70-6.10); RED CELL DISTRIBUTION WIDTH 16.2 % (11.5-14.5); WHITE BLOOD COUNT 13.3 X10'3 (4.5-11.0)
[2023-06-02] MEDS: thiamine 100mg/ml 2ml inj. IV SCH (07:14)
[2023-06-02] MEDS: folic acid 1mg tablet PO SCH (07:24)
[2023-06-02] MEDS: fondaparinux 2.5 MG/0.5 ML syringe SUBCUT SCH (07:26)
[2023-06-02] MEDS: nicotine 7mg patch - 24hr TD SCH (07:27)
[2023-06-02] MEDS: pantoprazole 40MG/NS 100ML BAG 100 ML IV SCH (07:29)
[2023-06-02 07:30] LABS: ALANINE AMINOTRANSFERASE 25 U/L (12-78); ALBUMIN 1.7 G/DL (3.4-5.0); ALBUMIN/GLOBULIN RATIO 0.5 (1.1-1.5); ALKALINE PHOSPHATASE 184 IU/L (46-116); ANION GAP 9 (8-16); ASPARTATE AMINO TRANSFERASE 32 U/L (10-37); BILIRUBIN,TOTAL 2.9 MG/DL (0.1-1.0); BLOOD UREA NITROGEN 3 MG/DL (7-18); BUN/CREATININE RATIO 4.2 (10.0-20.0); CHLORIDE 103 MMOL/L (99-107); CREATININE 0.72 MG/DL (0.60-1.10); GLUCOSE 94 MG/DL (70-104); MAGNESIUM 1.7 MG/DL (1.5-2.4); PHOSPHORUS 2.9 MG/DL (2.3-4.5); SODIUM 137 MMOL/L (135-145); TOTAL CARBON DIOXIDE 24.8 MMOL/L (24-32); TOTAL PROTEIN 4.9 G/DL (6.4-8.2); eCRCL 86 ML/MIN; eGFR > 90 ML/MIN
[2023-06-02 07:43] LABS: POTASSIUM 2.8 MMOL/L (3.5-5.1)
--- NOTE | 2023-06-02 07:55 | NUR ---
Message: [id number] Nickie Torres 2.[address] Will follow plan of care to correct. Kristal [id number] Transaction number: [id number]
[2023-06-02] MEDS: morphine 2 MG/ML inj. syringe IV PRN (08:04)
[2023-06-02] MEDS ORDERED: magnesium oxide 400mg tablet PO SCH (08:05)
[2023-06-02] MEDS ORDERED: potassium chloride 8mEq ER tablet PO SCH (08:05)
[2023-06-02] MEDS: potassium Cl 20 mEq SR tablet PO PRN ×2 (08:08→12:26)
[2023-06-02] MEDS: K and/or MAG REPLACEMENT MC SCH (08:14)
[2023-06-02 08:56] VITALS: RESP 17
--- NOTE | 2023-06-02 09:48 | NUR ---
Wound care in to see patient, boarder gauze changed, colostomy appliance changed. Patient tolerated well. Will continue with plan of care.
[2023-06-02 10:03] VITALS: PULSE 110; RESP 16; O2SAT 96
[2023-06-02] MEDS ORDERED: sodium ferric gluc complex inj 125 MG in normal saline 100ml IV soln 100 ML IV SCH (10:15)
[2023-06-02 11:03] LABS: % IRON SATURATION 18 % (11-46); IRON 17 UG/DL (53-167); TOTAL IRON BINDING CAPACITY 95 UG/DL (259-388)
[2023-06-02] MEDS: normal saline 1000ml 1,000 ML IV SCH (11:46)
[2023-06-02 11:53] VITALS: BP 106/62; PULSE 104; RESP 14; TEMP 98.1; O2SAT 98
[2023-06-02] MEDS: linezolid 600mg/300ml PREMIX 300 ML IV SCH (12:30)
[2023-06-02] MEDS ORDERED: lactose-reduced food (Ensure Enlive) - 237ml bottle PO SCH (13:00)
--- NOTE | 2023-06-02 13:46 | NUR ---
Report called to [facility] MURRIETA.
--- NOTE | 2023-06-02 15:16 | NUR ---
Patient discharged with [facility] transport. Packet taken by EMT and reviewed. Patient awake and calm. Report was called to [facility].
== END 2023-06-02 14:55 | DRG 710 ==
LOC: ER 12:01 → ICU 2S 16:03 → PCU 3S 05-29 16:21 → SUR 3N 05-30 13:35 → PCU 3S 05-30 13:38
PROVIDERS: ADMIT Surgery; ATTEND Surgery
PROC: 5A1955Z Respiratory Ventilation, Greater than 96 Consecutive Hours (ICD-10-PCS; 2023-05-20)
PROC: 02HV33Z Insertion of Infusion Device into Superior Vena Cava, Percutaneous Approach (ICD-10-PCS; 2023-05-20)
PROC: 0DTG0ZZ Resection of Left Large Intestine, Open Approach (ICD-10-PCS; principal; 2023-05-20 14:35)
PROC: 0DHA0UZ Insertion of Feeding Device into Jejunum, Open Approach (ICD-10-PCS; 2023-05-24)
PROC: 0D1L0Z4 Bypass Transverse Colon to Cutaneous, Open Approach (ICD-10-PCS; 2023-05-24)
PROC: 30233N1 Transfusion of Nonautologous Red Blood Cells into Peripheral Vein, Percutaneous Approach (ICD-10-PCS; 2023-05-24)
PROC: 30233R1 Transfusion of Nonautologous Platelets into Peripheral Vein, Percutaneous Approach (ICD-10-PCS; 2023-05-24)
PROC: 0WJG0ZZ Inspection of Peritoneal Cavity, Open Approach (ICD-10-PCS; 2023-05-27)
PROC: 05H933Z Insertion of Infusion Device into Right Brachial Vein, Percutaneous Approach (ICD-10-PCS; 2023-05-28)
PROC: B54MZZA Ultrasonography of Right Upper Extremity Veins, Guidance (ICD-10-PCS; 2023-05-28)
DX: A41.50 Gram-negative sepsis, unspecified (principal); J96.01 Acute respiratory failure with hypoxia; K63.1 Perforation of intestine (nontraumatic); K65.0 Generalized (acute) peritonitis; R65.21 Severe sepsis with septic shock; R57.0 Cardiogenic shock; I21.A1 Myocardial infarction type 2; I50.23 Acute on chronic systolic (congestive) heart failure; E87.20 Acidosis, unspecified; D63.8 Anemia in other chronic diseases classified elsewhere; N17.9 Acute kidney failure, unspecified; C18.4 Malignant neoplasm of transverse colon; D69.6 Thrombocytopenia, unspecified; N39.0 Urinary tract infection, site not specified; I42.0 Dilated cardiomyopathy; E87.6 Hypokalemia; E87.8 Other disorders of electrolyte and fluid balance, not elsewhere classified; K21.9 Gastro-esophageal reflux disease without esophagitis; B95.5 Unspecified streptococcus as the cause of diseases classified elsewhere; D64.9 Anemia, unspecified; B96.20 Unspecified Escherichia coli [E. coli] as the cause of diseases classified elsewhere; Z87.11 Personal history of peptic ulcer disease
CPT/HCPCS: 36410; 36415; 36430; 36600; 71045; 74176; 76942; 80048; 80053; 81001; 82140; 82803; 82810; 82948; 83036; 83540; 83550; 83605; 83690; 83735; 84100; 84132; 84134; 84145; 84484; 85007; 85018; 85025; 85610; 85730; 86022; 86140; 86885; 86900; 86901; 86920; 87040; 87070; 87075; 87076; 87077; 87088; 87185; 87186; 92508; 92616; 93306; 93308; 93970; 94002; 94003; 94640; 94760; 97110; 97161; 97530; 97535; 99285; A4215; A4314; A4371; A4421; A4615; A4618; A4624; A4628; A4649; A5200; A6209; A6212; A6213; A6222; A6258; A6402; A6449; A7000; A7015; A9900; B4087; C1751; C1758; C9113; G0378; J0131; J0171; J0610; J1170; J1250; J1650; J1652; J1720; J1815; J1940; J2020; J2060; J2250; J2260; J2270; J2405; J2543; J2710; J2916; J3010; J3260; J3370; J3411; J3475; J3480; J3490; J7030; J7040; J7050; J7060; J7070; J7120; J7121; P9016; P9035; P9045

== ENCOUNTER 2023-10-30 14:58 | Emergency (ER) | payer MEDICAID ==
[~2023-10-30] VITALS: Ht 172.7 cm; Wt 53.3 kg
[~2023-10-30 14:58] MED LIST: NO HOME MEDS
[2023-10-30 15:09] VITALS: TEMP 98.4
[2023-10-30 17:29] LABS: BASOPHILS # (AUTO) 0.1 X10'3 (0-0.2); BASOPHILS % (AUTO) 0.8 % (0-1); EOSINOPHILS # (AUTO) 0.5 X10'3 (0-0.9); EOSINOPHILS % (AUTO) 3.9 % (0-6); HEMATOCRIT 40.3 % (42.0-52.0); HEMOGLOBIN 13.2 g/dl (14.0-17.9); LYMPHOCYTES # (AUTO) 2.6 X10'3 (1.1-4.8); LYMPHOCYTES % (AUTO) 21.8 % (21-51); MEAN CORPUSCULAR HGB CONC 32.8 g/dL (33.0-36.5); MEAN CORPUSCULAR VOLUME 97.7 FL (78-98); MONOCYTES # (AUTO) 1.4 X10'3 (0-0.9); MONOCYTES % (AUTO) 11.5 % (2-12); NEUTROPHILS # (AUTO) 7.3 X10'3 (1.8-7.7); PLATELET COUNT 375 X10'3 (140-440); RED BLOOD COUNT 4.13 X10'6 (4.70-6.10); WHITE BLOOD COUNT 11.8 X10'3 (4.5-11.0)
[2023-10-30] MEDS: morphine 4 MG/ML inj SYRINge IV ONE (17:48)
[2023-10-30 17:50] LABS: ALANINE AMINOTRANSFERASE 18 U/L (12-78); ALBUMIN 3.1 G/DL (3.4-5.0); ALBUMIN/GLOBULIN RATIO 0.8 (1.1-1.5); ALKALINE PHOSPHATASE 95 IU/L (46-116); ANION GAP 5 (8-16); ASPARTATE AMINO TRANSFERASE 13 U/L (10-37); BILIRUBIN,TOTAL 1.2 MG/DL (0.1-1.0); BLOOD UREA NITROGEN 7 MG/DL (7-18); BUN/CREATININE RATIO 9.9 (10.0-20.0); CALCIUM 8.8 MG/DL (8.5-10.1); CHLORIDE 105 MMOL/L (99-107); CREATININE 0.71 MG/DL (0.60-1.10); GLUCOSE 86 MG/DL (70-104); POTASSIUM 4.3 MMOL/L (3.5-5.1); SODIUM 141 MMOL/L (135-145); TOTAL CARBON DIOXIDE 31.1 MMOL/L (24-32); TOTAL PROTEIN 7.2 G/DL (6.4-8.2); eCRCL 87 ML/MIN; eGFR > 90 ML/MIN
[2023-10-30] MEDS ORDERED: CHOL100017 PO (17:50)
[2023-10-30] MEDS ORDERED: OXYC1TAB17 PO (17:50)
[2023-10-30] MEDS ORDERED: THIA100T66 PO (17:50)
[2023-10-30] MEDS ORDERED: FLO0.4C (17:50)
[2023-10-30] MEDS ORDERED: FOLI1TAB27 PO (17:50)
[2023-10-30] MEDS ORDERED: MORP-92 PO (17:50)
[2023-10-30] MEDS ORDERED: iohexol 300mg/ml 100ml inj. ONE (17:57)
[2023-10-30 18:56] VITALS: PULSE 47
[2023-10-30 19:17] LABS: INR 1.1 INR
[2023-10-30] MEDS: vancomycin/NS 1 GM ADD-VANTAGE 250 ML X 1 DOSE IV ONE (19:18)
[2023-10-30] MEDS: HYDROmorphone inj. 0.5 MG/0.5 ML DISP.SYRIN IV ONE ×2 (19:19→20:14)
[2023-10-30] MEDS: piperacillin/tazo 4.5gm/100ml 100 ML IV ONE (19:31)
[2023-10-30] MEDS ORDERED: SULF1TAB49 PO (20:17)
[2023-10-30] MEDS ORDERED: CEPH-585 PO (20:17)
[2023-10-30] MEDS ORDERED: HYDR-3972 PO (20:17)
[2023-10-30 20:49] VITALS: BP 128/67; RESP 18; O2SAT 98
== END 2023-10-30 20:53 | disposition home or self-care (01) ==
LOC: ER 14:59
DX: R18.8 Other ascites (principal); Z79.899 Other long term (current) drug therapy
CPT/HCPCS: 36415; 74177; 80053; 83605; 84145; 85025; 85610; 86140; 87040; 96365; 96366; 96368; 96375; 96376; 99285; J1170; J2270; J2543; J3370; J3490; Q9967